=== PATIENT | female | born 1985 | race Caucasian/White ===

== ENCOUNTER 2023-07-19 17:04 | Outpatient (CLI) | payer OTHER, SELFPAY ==
[2023-07-19 20:01] VITALS: BMI 30.4
== END 2023-07-19 17:53 | disposition home or self-care (01) ==
LOC: UTC.OUT 17:12
PROVIDERS: PCP Family Medicine; Visit Provider Nurse Practitioner Family
DX: Z11.1 Encounter for screening for respiratory tuberculosis (principal)
CPT/HCPCS: 86580

== ENCOUNTER 2025-05-07 07:56 | Emergency (ER) | payer OTHER, SELFPAY ==
[2025-05-07] VITALS (8 sets, daily range): BP systolic 174–200; BP diastolic 75–134; PULSE 55–85; RESP 15–16; TEMP 36.6–36.7; O2SAT 95–99; BMI 34.2
--- NOTE | 2025-05-07 08:16 | CT_ITS ---
FINAL REPORT TECHNIQUE: The patient was injected with IV contrast. Axial images were obtained through the chest in a PE protocol. 3-D reconstruction images were also performed. Individualized dose reduction techniques using automated exposure control or adjustment of the MA and/or KV according to patient's size were employed. CLINICAL HISTORY: pain between scapula; left arm paresthesias COMPARISON: None FINDINGS: Mediastinal vasculature is adequately opacified. No pulmonary artery filling defects are identified to suggest PE. There is no aortic dissection or aneurysm. There is no axillary adenopathy. There is no hilar or mediastinal adenopathy. The heart size is normal. There is no pericardial or pleural effusion. Limited images of the upper abdomen demonstrate small bilateral nonobstructing kidney stones measuring up to 3 mm. No suspicious infiltrate or nodule is identified. IMPRESSION: No evidence of dissection or aneurysm. Reviewed, Interpreted and Dictated by Joshua Cooper MD Transcribed by Joanna Coulter Authenticated and [facility]
--- NOTE | 2025-05-07 08:16 | CT_ITS ---
FINAL REPORT TECHNIQUE: Axial images were obtained of the thoracic spine by computed tomography. Coronal and sagittal reconstruction process performed. This study was performed with techniques to keep radiation doses as low as reasonably achievable (ALARA). Individualized dose reduction techniques using automated exposure control or adjustment of mA and/or kV according to the patient's size were employed. CLINICAL HISTORY: pain between scapula; left arm paresthesias COMPARISON: None FINDINGS: Thoracic vertebrae show normal height. Disc spaces are well-preserved. There is no malalignment. The facets are properly aligned. There is mild anterior osteophyte formation in the mid and lower thoracic spine. There are small bilateral nonobstructing kidney stones measuring up to 3 mm. No hydronephrosis. IMPRESSION: Degenerative/chronic change without acute bony abnormality. Small nonobstructing bilateral kidney stones. Reviewed, Interpreted and Dictated by Joshua Cooper MD Transcribed by Joanna Coulter Authenticated and [facility]
--- NOTE | 2025-05-07 08:18 | ED_ITS ---
Discharge Plan Disposition Patient Disposition: Home, Self-Care Prescriptions Prescriptions: New lidocaine 4 % adhesive patch,medicated 1 patch topical DAILY Qty: 5 0RF Rx Instructions: may leave on for up to 12 hrs ibuprofen 800 mg tablet 800 mg PO TID PRN (Reason: pain) 7 Days Qty: 20 0RF cyclobenzaprine 5 mg tablet 5 mg PO TID PRN (Reason: muscle spasm) 5 Days Qty: 15 0RF No Action lisinopril 40 mg tablet PO Patient Comments: TAKE ONE TABLET BY MOUTH EVERY DAY Referrals Follow up/Referrals: Evans Wing MD [Primary Care Provider, Medical] - See instructions Sai Degroot MD [Staff Physician, Cardiology] - See instructions Activity Restrictions/Add. Instructions Additional Instructions/Restrictions: No evidence of an acute cardiovascular or neurovascular emergency. If you continue to have some paresthesias in the left upper extremity I would recommend that you follow-up with Dr. Wing for consideration of an outpatient MRI return to the emergency point with any significant weakness developing in your arm. This is most likely an acute thoracic myofascial strain supportive medications have been prescribed. Lastly I would recommend that you follow-up with our cow rider for further evaluation and workup for your refractory hypertension that is chronic. Clinical Impressions Clinical Impression: Back pain, Arm paresthesia, left, Hypertension, Acute thoracic myofascial strain Print Language Print Language: [place] Discharge ED Provider: Claudia Perez General Adult HPI General Chief complaint: PAIN Stated complaint: Pain in back, Spinal area, and L arm Time Seen by Provider: 05/07/25 08:08 Mode of Arrival: Ambulatory Source of Information: Patient Description of Symptoms (Recalled from ER Triage Doc. by RN): patient states this am she turned her head to left and felt a pop in between her shoudler blades with numbness in her left middle ring and pinky finger. she reports 6/10 pain History of Present Illness HPI narrative: Patient is a 40-year-old female presented with back pain and left arm paresthesias. States she was driving at work turning to the left and felt a pop between her shoulder blades and subsequently developed [id number] sensation in her left upper extremity all the way down to her fingers. States the pain is severe worsening with movement and touch feels like that she is having significant muscular spasm in her back she states. No chest pain. Does have refractory very poorly controlled hypertension and is on multiple medications for this. Has never been worked up by a specialist. States that she takes lisinopril amlodipine metoprolol. Related Data Home Medications ?Medication ?Instructions ?Recorded ?Confirmed lisinopril 40 mg tablet mg PO 10/29/24 10/29/24 Previous Rx's ?Medication ?Instructions ?Recorded cyclobenzaprine 5 mg tablet 5 mg PO TID PRN muscle spa sm 5 05/07/25 days #15 tabs ibuprofen 800 mg tablet 800 mg PO TID PRN pain 7 day s #20 05/07/25 tabs lidocaine 4 % topical patch 1 patch topical DAILY #5 e a 05/07/25 Allergies Allergy/AdvReac Type Severity Reaction Status Date / Time capsaicin Allergy Verified 10/29/24 09:58 [facility] Disclaimer: The information contained in this section may have been updated after the patient was seen, as this information can be updated by other users. Medical History (Updated 05/07/25 @ 10:33 by Claudia Perez MD) Hx of Crohn's disease History of high blood pressure History of pre-eclampsia Surgical History (Updated 10/29/24 @ 10:00 by Carolyn Stephens MA) Hx of resection of small bowel Social History (Updated 10/29/24 @ 10:28 by Carolyn Stephens MA) Smoking Status: Current every day smoker alcohol intake: current alcohol intake frequency: holidays/special occasions only current occupational status: employed Travel in the last 8 weeks?: None Have you lived/traveled outside US in past 30 days?: No Contact w/someone who lives/traveled outside US past 30 days?: No Exposure to someone with infectious disease in past 14 days?: No Do you have a fever (greater than 100.4 F or 38 C)?: No Have you tested positive for COVID-19?: No Exposed to someone with COVID-19 in past 14 days?: No Do you have a sore throat?: No Do you have a cough?: No Do you have any weakness?: No Do you have any diarrhea?: No Are you experiencing any unusual bleeding?: No Do you have any muscle aches/pain?: Yes Do you have any abdominal pain?: No Are you experiencing loss of taste or smell?: No Other Medical History Have you received the Flu Vaccine for this season: No Have you received the Pneumonia Vaccine: No ROS Obtained: Yes All systems reviewed & no additional complaints except as documented Physical Exam General General appearance: alert and in no apparent distress Respiratory Respiratory exam: Present normal lung sounds bilaterally Cardiovascular Cardiovascular exam: Present regular rate, normal rhythm and other (Severely hypertensive; normal 2+ bilateral radial pulses) Back Exam Back exam: Present tenderness (Tenderness in the upper and midline thoracic spine no cervical spine tenderness no step-offs or deformities or soft tissue swelling) Neurological Exam Neurological exam: Present alert, oriented X3, CN II-XII intact, normal gait and other (Specifically left upper extremity there is normal median ulnar radial axillary nerve motor and sensory function); Absent motor sensory deficit Medical Decision Making Medical Records Screening: Per USPSTF and CDC recommendations, given the prevalence of disease in our region, it is our hospital?s policy to screen for HIV and viral Hepatitis for all patients aged 18 and over and those with ongoing risk factors. Black Inquiry Pt receiving controlled substance: No Vital Signs: 05/07/25 08:07 05/07/25 08:08 05/07/25 08:09 Temperature 97.8 F Temperature Source Oral Pulse Rate 72 77 Pulse Rate [Right Radial] 73 Respiratory Rate 15 Blood Pressure 200/134 H 193/123 H Blood Pressure [Right Arm] 193/123 H Blood Pressure Mean [Right Arm] 146 Blood Pressure Source [Right Arm] Automatic Cuff Blood Pressure Position [Right Arm] Sitting 02 Sat by Pulse Oximetry 98 98 97 Oxygen Delivery Method Room Air 05/07/25 08:30 05/07/25 09:00 05/07/25 09:30 Temperature Temperature Source Pulse Rate 69 64 55 L Pulse Rate [Right Radial] Respiratory Rate Blood Pressure 174/111 H 175/108 H 183/110 H Blood Pressure [Right Arm] Blood Pressure Mean [Right Arm] Blood Pressure Source [Right Arm] Blood Pressure Position [Right Arm] 02 Sat by Pulse Oximetry 98 95 99 Oxygen Delivery Method 05/07/25 10:00 Temperature Temperature Source Pulse Rate 64 Pulse Rate [Right Radial] Respiratory Rate Blood Pressure 182/125 H Blood Pressure [Right Arm] Blood Pressure Mean [Right Arm] Blood Pressure Source [Right Arm] Blood Pressure Position [Right Arm] 02 Sat by Pulse Oximetry 97 Oxygen Delivery Method Lab Data Lab results reviewed: Yes I reviewed the patient's lab results. Lab Results 05/07/25 08:46: WBC 9.7, RBC 4.77, Hgb 14.0, Hct 41.9, MCV 87.8, MCH 29.4, MCHC 33.4, RDW 12.3, Plt Count 294, MPV 10.8 H, Neut % (Auto) 61.8, Lymph % (Auto) 30.2, [place] % (Auto) 4.7, Eos % (Auto) 2.7, Baso % (Auto) 0.5, Neut # (Auto) 6.0, Lymph # (Auto) 2.9, [place] # (Auto) 0.5, Eos # (Auto) 0.3, Baso # (Auto) 0.1, PT 9.7 L, INR 0.86 L, APTT 28.1, Sodium 140, Potassium 4.3, Chloride 107, Carbon Dioxide 28, Anion Gap 9.3, BUN 13, Creatinine 0.80, Estimated Creat Clear 150, Estimated GFR 80, Est GFR ( Amer) 97, Glucose 103 H, Calcium 9.5, Total Bilirubin 0.4, AST 29, ALT 22, Alkaline Phosphatase 61, Troponin I < 0.01, Total Protein 7.5, Albumin 4.6, Globulin 2.9, Albumin/Globulin Ratio 1.6, HCV Ab RYLAN w/Rflx PCR Qn Negative, HIV Ag/Ab Combo Qual Negative 05/07/25 08:46 05/07/25 08:46 Orders (Tests/Meds): ED MEDICATIONS Discontinued Medications Generic Name Dose Route Start Last Admin Trade Name Freq PRN Reason Stop Dose Admin Acetaminophen 1,000 mg 05/07/25 08:16 05/07/25 08:42 Acetaminophen 1,000mg/100ml Vial IV 05/07/25 08:17 1,000 mg ONCE ONE Administration Diazepam 2 mg 05/07/25 08:16 05/07/25 08:43 Diazepam 10mg/2ml Syringe IV 05/07/25 08:17 2 mg ONCE ONE Administration Lactated Ringer's 1,000 mls @ 999 mls/hr 05/07/25 08:30 05/07/25 10:30 Lactated Ringer's 1000 Ml Bag IV 05/07/25 09:30 Infused .Q1H1M MAISHA Infusion Iopamidol 80 ml 05/07/25 09:26 05/07/25 09:27 Iopamidol-370 (76%);100ml Bottle IV 05/07/25 09:27 80 ml ONCE ONE Administration Sodium Chloride 10 ml 05/07/25 09:26 05/07/25 09:27 Sodium Chloride 0.9% 10ml Syr (Rad Only) IV 05/07/25 09:27 10 ml ONCE ONE Administration Sodium Chloride 50 ml 05/07/25 09:26 05/07/25 09:26 0.9 % Sodium Chloride 50 Ml Vial IV 05/07/25 09:27 50 ml ONCE ONE Administration ORDERS Category Date Time Status CT angio chest - dissection Stat Cat Scan 05/07/25 08:[address] thoracic spine wo con Stat Cat Scan 05/07/25 08:16 Taken CBC w/Auto Diff [Complete Blood Count Auto Diff] Stat Lab 05/07/25 08:46 Completed CMP [Comprehensive Metabolic Panel] Stat Lab 05/07/25 08:46 Completed HIV Combo Stat Lab 05/07/25 08:46 Completed Hepatitis C Ab Qual. W/ RFX Stat Lab 05/07/25 08:46 Completed PT/PTT Stat Lab 05/07/25 08:46 Completed Trop I [Troponin I] Stat Lab 05/07/25 08:46 Completed Troponin I Q3H Lab 05/07/25 11:30 Ordered Troponin I Q3H Lab 05/07/25 14:30 Ordered Medical Decision Narrative: 40-year-old presenting today with significant pain between her shoulder blades in the midline of her thoracic spine in the upper region as well as left arm paresthesias. Anatomically she would have to have cervical involvement to have cervical radiculopathy into the left upper extremity so the location of her back pain is not consistent with that. She has normal pulses however an aortic dissection remains in the differential and we will get a CT of her chest to rule this out. She has normal pulses other this is low likelihood. She does have severe and refractory hypertension on multiple medications for this I advised that she follow-up with a specialist after today's visit if everything turns out to be okay from emergency standpoint. She is significantly tender even to light touch in her back which suggest this is superficial and musculoskeletal in nature but that will be a diagnosis of exclusion. Tylenol Valium IV fluids have been administered and will reassess. At the moment I do not suspect that she has any significant herniated disc or central nervous system compression that would require emergency MRI or decompression/surgery. Her neurologic exam is normal aside from subjective paresthesias in that left arm. Reassessment 10:[address] scan performed I personally interpreted shows no evidence of a dissection radiology read consistent with this as well. She does have some chronic degenerative changes but nothing acute. Labs otherwise unremarkable on serial assessments she has normal neurologic function still complains of some paresthesias. She may follow-up outpatient discussed the possibility of getting an MRI but no indication emergently for this. Lastly she has chronic and refractory hypertension she is been referred to her cow rider patient was discharged in stable and improved condition. Working diagnosis is an acute myofascial thoracic strain. Critical Care Critical Care Time Critical Care Time: No
--- NOTE | 2025-05-07 08:28 | ECG_ITS ---
APPROVED REPORT Exam: Resting ECG HR:69 bpm ECG Measurements Heart Rate 69 AXES AR 170 P 49 QRSd 88 QRS 72 QT 388 T 52 QTc 407 Conclusion SINUS RHYTHM NONSPECIFIC T-WAVE ABNORMALITY BORDERLINE ECG UNCONFIRMED REPORT Electronically signed by : Vicente Perez, 05/09/2025 15:31:17
[2025-05-07] MEDS: ACETAMINOPHEN 1,000MG/100ML VIAL 1000 MG IV (08:42)
[2025-05-07] MEDS: LACTATED RINGERS 1000ML 1,000 ML 999 ML IV (08:42)
[2025-05-07] MEDS: diazePAM 10MG/2ML SYRINGE 2 MG IV (08:43)
[2025-05-07 08:55] LABS: Hematocrit 41.9 % (37.0-47.0); Hemoglobin 14.0 g/dL (12.2-16.2); Immature Granulocytes % 0.1 %; Mean Corpuscular HGB Conc 33.4 g/dL (31.8-35.4); Mean Corpuscular Hemoglobin 29.4 pg (27.0-31.2); Mean Corpuscular Volume 87.8 fl (81-99); Nucleated Red Blood Cells % 0 %; Platelet Count 294 K/mm3 (142-424); Red Blood Count 4.77 M/mm3 (4.20-5.40); Red Cell Distribution Width-SD 39.8 fL; White Blood Count 9.7 K/mm3 (4.8-10.8)
[2025-05-07 09:03] LABS: Albumin Level 4.6 g/dl (3.5-5.0); Chloride 107 mmol/L (98-107); Potassium 4.3 mmoL/L (3.5-5.1); Sodium 140 mmol/L (136-145)
[2025-05-07 09:06] LABS: Alanine Aminotransferase 22 U/L (12-78); Albumin/Globulin Ratio 1.6 (1.1-1.8); Alkaline Phosphatase 61 U/L (38-126); Anion Gap 9.3 mEq/L (5-15); Aspartate Amino Transferase 29 U/L (14-36); Bilirubin,Total 0.4 mg/dl (0.2-1.3); Blood Urea Nitrogen 13 mg/dl (7-17); Calcium 9.5 mg/dl (8.4-10.2); Carbon Dioxide 28 mmol/L (22.0-30.0); Creatinine Clearance Estimated 150 mL/min (50-200); Creatinine,Serum 0.80 mg/dl (0.52-1.04); Estimated Glomerular Filt Rate 80 ml/min (>60); GFR (African American) 97 ML/MIN (>60); Globulin 2.9 g/dL (1.3-3.2); Glucose 103 mg/dl (74-100); Total Protein,Serum 7.5 g/dl (6.3-8.2)
[2025-05-07 09:07] LABS: Activated Partial Thrombo Time 28.1 seconds (22.8-30.6); INR 0.86 (0.9-1.1); Prothrombin Time 9.7 seconds (10.1-12.5)
[2025-05-07 09:22] LABS: Troponin I < 0.01 ng/ml (0.00-0.034)
[2025-05-07] MEDS: 0.9 % SODIUM CHLORIDE 50 ML VIAL IV (09:26)
[2025-05-07] MEDS: IOPAMIDOL-370 (76%);100ML BOTTLE 80 ML IV (09:27)
[2025-05-07] MEDS: SODIUM CHLORIDE 0.9% 10ML SYR (RAD ONLY) 10 ML IV (09:27)
[2025-05-07 09:58] LABS: Hepatitis C Ab Qual. W/ RFX NEGATIVE (Negative)
== END 2025-05-07 10:44 | disposition home or self-care (01) ==
PROVIDERS: Emergency Provider Student in an Organized Health Care Education/Training Program; PCP Family Medicine
DX: S29.019A Strain of muscle and tendon of unspecified wall of thorax, initial encounter (principal); M54.9 Dorsalgia, unspecified; I10 Essential (primary) hypertension; R20.2 Paresthesia of skin
CPT/HCPCS: 71275; 72128; 80053; 84484; 85025; 85610; 85730; 86803; 87389; 93005; 96361; 96374; 96375; 99285; J0131; J3360; J7120; Q9967

== ENCOUNTER 2025-06-03 11:35 | Emergency (ER) | payer OTHER, SELFPAY ==
--- OUTSIDE RECORDS SUMMARY | 2024-06-25 05:15 | XMS_ITS ---
Author Organization Aj Address [address] [place] [address] [place] [id number] Care Team Providers Care Fish Filleter Name Role Phone Evans Wing Unavailable [phone] Allergies No Known Allergies REASON FOR VISIT f/u fasting Medications Medication SIG (Take, Route, Fr equency, Duration) Notes Start Date End Date Status Lisinopril 40 MG 1 tablet Orally Once a day; Duration: 90 days 06/25/2024 Active Vital Signs Blood pressure systolic 170 mm Hg 06/25/20 24 Blood pressure diastolic 114 mm Hg 024 Heart Rate 57 /min 06/25/2024 Height 68 in 06/25/2024 Weight 214 lbs 06/25/2024 BMI 32.54 kg/m2 06/25/2024 Encounters Encounter Location Date Provider Diagnosis Aj [address] [place] [address] [place] [id number] 06/25/2024 Evans Wing Primary hypertension I10 and Mixed hyperlipidemia E78.2 Assessments Encounter Date Diagnosis (ICD Code) Assessment Notes Treatment Notes Treatment Clinical Notes Section Notes 06/25/2024 Primary hypertension (ICD-10 - I10) Not at goal 06/25/2024 Mixed hyperlipidemia (ICD-10 - E78.2) Plan Of Treatment Medication Medication Name Sig Start Date Stop Date Notes Lisinopril 20 MG 1 tablet Orally Once a day 12/28/2023 Lisinopril 40 MG 1 tablet Orally Once a day; Duration: 90 days 06/25/2024 Treatment Notes Assessment Notes Primary hypertension Not at goal Pending Test Test Name Order Date H-Lipid Panel 06/25/2024 H-CMP 06/25/2024 Next Appt Details Follow Up: 4 Weeks, Reason: Progress Notes * YESENIA ROTHOB: 7 (40 yo F)Acc No.[id number]:06/25/2024 Progress Notes Patient: ZAKIYA MALCOLM Provider: Gisselle Wing M.D. :1985 A ge:39 Y S ex:Female Date:06/25/2024 Address:[address] [place] [address] [place], [place] [address] Subjective: * Chief Complaints: * 1 . F/u fasting. * HPI: C ardiology: 39 year old female presents with c/o Blood Pressure Elevated?Pt here to f/u on hypertension. Pt's bp elevated in office today, pt states that she did not take Lisinopril yesterday and just took it about 30 minutes ago. c/o Hyperlipidemia P t here to f/u, states she is fasting today. * ROS: D ERMATOLOGY: no R mara. n o H dae. G ASTROENTEROLOGY: no N ausea. n o V omiting. U ROLOGY: no D ifficulty urinating. n o B lood in urine. * Medical History: H ypertension, Kidney Stones. * Surgical History: W isdom Teeth Extractions , Upper Teeth Extracted . * Hospitalization/Major Diagno stic Procedure: D enies Past Hospitalization. * Family History: F ather: alive. M other: alive. 1 sister(s) . 1 son(s) . . * Social History: C URRENT TOBACCO USE: No . M arital Status: Single. * Medications: T aking Lisinopril 20 MG Tablet 1 tablet Orally Once a day , Medication List reviewed and reconciled with the patient * Allergies: N .K.D.A. Objective: * Vitals: W t:214, Temp:98.1, BP:170/114, HR:57, Nurse:idalia, Ht: 68, Repeat BP:164/98, BMI:32.54. * Examination: C ardiology: General Appearance: p leasant, NAD. H eart sounds: R RR, normal S1, S2. L ungs: c lear, no rales or wheezes. E xtremities: n o leg edema. Assessment: * Assessment: 1. P rimary hypertension - I10 (Primary) 2 . M ixed hyperlipidemia - E78.2? Plan: * Treatment: 2. M ixed hyperlipidemia L AB: H-Lipid Panel L AB: H-CMP * Follow Up: 4 Weeks * Images: Billing Information: * Visit Code: 52356 Office Visit, Est Pt., Level 4. * Procedure Codes: * Electronic signature of Nga Wing MD on 06/03/2025 at 12:04 PM EDT Sign off status: Pending * Provider: Gisselle Wing M.D. Date: Generated for Dario donovan/Gerardo/Lexysmitting on: 0 06/03/2025 12:04 PM EDT History and Physical Notes * HPI (History of Present Illness) Category Sub-Category Detail Notes Category Not es Cardiology Blood Pressure Elevated Pt here to f/u on hypertension. Pt's bp elevated in office today, pt states that she did not take Lisinopril yesterday and just took it about 30 minutes ago Hyperlipidemia Pt here to f/u, stat es she is fasting today Examination Category Sub-Category Detail Notes Category Not es Cardiology Lungs: clear, no rales or wheezes Heart sounds: RRR, normal S1, S2 Extremities: no leg edema General Appearance: pleasant, NAD
--- OUTSIDE RECORDS SUMMARY | 2024-07-23 05:00 | XMS_ITS ---
Author Organization Aj Address [address] [place] [address] [place] [id number] Care Team Providers Care Office Executive Name Role Phone Mecca Evans Unavailable [phone] Allergies No Known Allergies REASON FOR VISIT 1 Month Follow Up Encounters Encounter Location Date Provider Diagnosis [place] [address] [place] [address] [place] [phone] 07/23/2024 Evans Wing Plan Of Treatment No Information Progress Notes * YESENIA ROTHOB: 7 (40 yo F)Acc No.[id number]:07/23/2024 Progress Notes Patient: ZAKIYA MALCOLM Provider: Gisselle Wing M.D. :1985 A ge:39 Y S ex:Female Date:07/23/2024 Address:[address] [place] [address] Subjective: * Chief Complaints: * 1 . 1 Month Follow Up. * ROS: D ERMATOLOGY: no R mara. [...] No . M arital Status: Single. * Allergies: N .K.D.A. Objective: * Vitals: Assessment: Plan: * Treatment: * Images: Billing Information: * Visit Code: * Procedure Codes: * Electronic signature of Nga Wing MD on 06/03/2025 at 12:05 PM EDT Sign off status: Pending * Provider: Gisselle Wing M.D. Date: 09/22/2023 Generated for Dario donovan/Gerardo/Paty on: 0 06/03/2025 12:05 PM EDT
--- OUTSIDE RECORDS SUMMARY | 2025-03-25 13:00 | XMS_ITS ---
Author Organization Aj Address [address] [place] [id number] Care Team Providers Care Supervisor Finish End Name Role Phone Evans Wing Unavailable [phone] Allergies No Known Allergies REASON FOR VISIT BP Elevated Medications Medication SIG (Take, Route, Frequency, Duration) Notes Start Date End Date Status Lisinopril 40 MG 1 tablet Orally Once a day 06/25/2024 Active amLODIPine Besylate 10 MG 1 tablet Orall y Once a day; Duration: 30 days 03/25/2025 Active Metoprolol Succinate ER 50 MG 1 tablet O rally Once a day; Duration: 30 days 03/25/2025 Active hydroCHLOROthiazide 12.5 MG 1 capsule in the morning Orally Once a day; Duration: 30 days 03/25/2025 Active Vital Signs Blood pressure systolic 218 mm Hg 03/25/20 25 Blood pressure diastolic 122 mm Hg 025 Heart Rate 81 /min 03/25/2025 Height 68 in 03/25/2025 Weight 219.6 lbs 03/25/2025 BMI 33.39 kg/m2 03/25/2025 Encounters Encounter Location Date Provider Diagnosis Aj [address] [place] [phone] 03/25/2025 Evanssarah Wing Primary hypertension I10 Assessments Encounter Date Diagnosis (ICD Code) Assessment Notes Treatment Notes Treatment Clinical Notes Section Notes 03/25/2025 Primary hypertension (ICD-10 - I10) Plan Of Treatment Medication Medication Name Sig Start Date Stop Date Notes Lisinopril 40 MG 1 tablet Orally Once a day 06/25/2024 amLODIPine Besylate 10 MG 1 tablet Orall y Once a day; Duration: 30 days 03/25/2025 Metoprolol Succinate ER 50 MG 1 tablet O rally Once a day; Duration: 30 days 03/25/2025 hydroCHLOROthiazide 12.5 MG 1 capsule in the morning Orally Once a day; Duration: 30 days 03/25/2025 Next Appt Details Follow Up: 1 day, Reason: Progress Notes * YESENIA ROTHOB: 7 (40 yo F)Acc No.[id number]:03/25/2025 Progress Notes Patient: ZAKIYA MALCOLM Provider: Gisselle Wing M.D. :1985 A ge:40 Y S ex:Female Date:03/25/2025 Address:[address] [place] [address] [place] [address] [place], [place] [address] Subjective: * Chief Complaints: * 1 . BP Elevated. * HPI: C ardiology: 40 year old female presents with c/o Blood Pressure Elevated?Pt states she was at work and started with blurry vision i n lt eye. Pt check bp and it was 227/146 and 210/119. 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 Pt states she does have dull headache in the back of her head as well. Pt states she took Lisinopril 40mg around 6:00 this morning and took another 10mg around 2:00 this afternoon. * ROS: D ERMATOLOGY: no R mara. [...] Status: Single. * Medications: T aking Lisinopril 40 MG Tablet 1 tablet Orally Once a day , Medication List reviewed and reconciled with the patient * Allergies: N .K.D.A. Objective: * Vitals: W t: 219.6, Temp: 98.0, BP: 218/122, HR: 81, Nurse: idalia, Ht: 68, BMI:33.39. * Examination: C ardiology: General Appearance: p leasant, NAD. H eart sounds: R RR, normal S1, S2. L ungs: c lear, no rales or wheezes. E xtremities: n o leg edema. Assessment: * Assessment: 1. P rimary hypertension - I10 (Primary) Plan: * Treatment: * Procedure Codes: 1 036F TOBACCO NON-USER * Follow Up: 1 day * Images: Billing Information: * Visit Code: 63519 Office Visit, Est Pt., Level 3. * Procedure Codes: 1036F TOBACCO NON-USER. * Electronic signature of Nga Wing MD on 06/03/2025 at 12:05 PM EDT Sign off status: Pending * Provider: Gisselle Wing M.D. Date: 0 03/25/2025 Generated for Dario donovan/Gerardo/Paty on: 0 06/03/2025 12:05 PM EDT History and Physical Notes * HPI (History of Present Illness) Category Sub-Category Detail Notes Category Not es Cardiology Blood Pressure Elevated Pt state s she was at work and started with blurry vision in lt eye. Pt check bp and it was 227/146 and 210/119. 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 Pt states she does have dull headache in the back of her head as well. Pt states she took Lisinopril 40mg around 6:00 this morning and took another 10mg around 2:00 this afternoon Examination Category Sub-Category Detail Notes Category Not es Cardiology Lungs: clear, no rales or wheezes Heart sounds: RRR, normal S1, S2 Extremities: no leg edema General Appearance: pleasant, NAD
--- OUTSIDE RECORDS SUMMARY | 2025-03-26 06:45 | XMS_ITS ---
Author Organization Aj Address [address] [place] [phone] Care Team Providers Care Crossing Watchman Name Role Phone Evans Wing Unavailable [phone] Allergies No Known Allergies REASON FOR VISIT follow up Medications Medication SIG (Take, Route, Frequency, Duration) Notes Start Date End Date Status amLODIPine Besylate 10 MG 1 tablet Orall y Once a day 03/25/2025 Active hydroCHLOROthiazide 12.5 MG 1 capsule in the morning Orally Once a day 03/25/2025 Active Metoprolol Succinate ER 50 MG 1 tablet O rally Once a day 03/25/2025 Active Lisinopril 40 MG 1 tablet Orally Once a day 06/25/2024 Active Vital Signs Blood pressure systolic 140 mm Hg 03/26/20 25 Blood pressure diastolic 92 mm Hg 025 Heart Rate 69 /min 03/26/2025 Height 68 in 03/26/2025 Weight 219 lbs 03/26/2025 BMI 33.3 kg/m2 03/26/2025 Encounters Encounter Location Date Provider Diagnosis Aj [facility] [address] [place] [phone] 03/26/2025 Evans Wing Primary hypertension I10 Assessments Encounter Date Diagnosis (ICD Code) Assessment Notes Treatment Notes Treatment Clinical Notes Section Notes 03/26/2025 Primary hypertension (ICD-10 - I10) Plan Of Treatment Medication Medication Name Sig Start Date Stop Date Notes amLODIPine Besylate 10 MG 1 tablet Orally Once a day 03/25 hydroCHLOROthiazide 12.5 MG 1 capsule in the morning Orally Once a day 03/25/2025 Metoprolol Succinate ER 50 MG 1 tablet Orally Once a day 0 03/25/2025 Lisinopril 40 MG 1 tablet Orally Once a day 06/25/2024 Next Appt Details Follow Up: 3 Weeks, Reason: Progress Notes * YESENIA ROTHOB: 7 (40 yo F)Acc No.[id number]:03/26/2025 Progress Notes Patient: ZAKIYA MALCOLM Provider: Gisselle Wing M.D. :1985 A ge:40 Y S ex:Female Date:03/26/2025 Address:[address] [place] [address] [place], [place] [address] Subjective: * Chief Complaints: * 1 . Follow up. * HPI: C ardiology: 40 year old female presents with c/o Blood Pressure Elevated?Pt here to f/u. Pt started on Amlodipine 10mg, Metoprolol Succ. 50mg and HCTZ 12.5mg on 03/25 due to high bp. Pt states she no longer has blurry vision and she does feel better. * ROS: D ERMATOLOGY: no R mara. [...] arital Status: Single. * Medications: T aking amLODIPine Besylate 10 MG Tablet 1 tablet Orally Once a day , Taking hydroCHLOROthiazide 12.5 MG Capsule 1 capsule in the morning Orally Once a day , Taking Metoprolol Succinate ER 50 MG Tablet Extended Release 24 Hour 1 tablet Orally Once a day , Taking Lisinopril 40 MG Tablet 1 tablet Orally Once a day , Medication List reviewed and reconciled with the patient * Allergies: N .K.D.A. Objective: * Vitals: W t: 219, Temp: 97.8, BP: 140/92, HR: 69, Nurse: idalia, Ht: 68, BMI:33.3. * Examination: C ardiology: General Appearance: p leasant, NAD. H eart sounds: R RR, normal S1, S2. L ungs: c lear, no rales or wheezes. E xtremities: n o leg edema. Assessment: * Assessment: 1. P rimary hypertension - I10 (Primary) Plan: * Treatment: * Follow Up: 3 Weeks * Images: Billing Information: * Visit Code: 93797 Office Visit, Est Pt., Level 3. * Procedure Codes: * Electronic signature of Nga Wing MD on 06/03/2025 at 12:05 PM EDT Sign off status: Pending * Provider: Gisselle Wing M.D. Date: 0 03/26/2025 Generated for Dario donovan/Gerardo/Paty on: 0 06/03/2025 12:05 PM EDT History and Physical Notes * HPI (History of Present Illness) Category Sub-Category Detail Notes Category Not es Cardiology Blood Pressure Elevated Pt here to f/u. Pt started on Amlodipine 10mg, Metoprolol Succ. 50mg and HCTZ 12.5mg on 03/25 due to high bp. Pt states she no longer has blurry vision and she does feel better Examination Category Sub-Category Detail Notes Category Not es Cardiology Lungs: clear, no rales or wheezes Heart sounds: RRR, normal S1, S2 Extremities: no leg edema General Appearance: pleasant, NAD
--- OUTSIDE RECORDS SUMMARY | 2025-04-10 09:00 | XMS_ITS | Encounter Summary ---
Author Organization [place] [address] Care Team Providers Care Associate Professor Of Surgery Name Role Phone Rebeca Cox MD Primary Care Provider + Reason for Referral * Consultation (Routine) - Closed Specialty Diagnoses / Procedures Referred By Contchuyita t Referred To Contact Diagnoses Ganglion cyst of finger Procedures [place] OFFICE/OUTPATIENT NEW MODERATE MDM 45 MINUTES Rebeca Cox MD [address] [place] [address] Phone: tel: fax: Jeremias Daly MD [address] [place] [address] Phone: tel: fax: Referral ID Status Reason Start Date Expiration Date Visits Re quested Visits Authorized [id number] Closed 04/10/2025 04/10/2026 99 99 Reason for Visit * Reason Comments Annual Exam Establish Care Encounter Details Date Type Department Care Team (Late st Contact Info) Description 04/10/2025 9:00 AM EDT Office Visit [facility] [address] [place] [address] Rebeca Cox MD [address] [place] [address] Annual physical exam (Primary Dx); Essential hypertension; Screening for iron deficiency anemia; Screening for thyroid disorder; Screening for endocrine, nutritional, metabolic and immunity disorder; Screening for lipoid disorders; Screening for diabetes mellitus; IUD (intrauterine device) in place; Ganglion cyst of finger Social History Tobacco Use Types Packs/Day Years Used Date Smoking Tobacco: Former Cigarettes Passive Smoke Exposure: Never Smokeless Tobacco: Never Tobacco Cessation:Counseling Given: Not Answered Alcohol Use Standard Drinks/Week Comments Yes 0 (1 standard drink = 0.6 oz pur e alcohol) PHQ-2 Answer Date Recorded PHQ-2 Total Score 0 04/10/2025 Comments No Sex and Gender Information Value Date Recorded Sex Assigned at Not on file Legal Sex Female 4:11 PM EDT Gender Identity Not on file Sexual Orientation Not on file documented as of this encounter Last Filed Vital Signs Vital Sign Reading Time Taken Comments Blood Pressure 146/86 04/10/2025 9:52 AM EDT Pulse 77 04/10/2025 9:09 AM EDT Temperature 37.3 C (99.1 F) 04/10/2025 9:09 AM EDT Respiratory Rate - - Oxygen Saturation 97% 04/10/2025 9:09 AM EDT Inhaled Oxygen Concentration - - Weight 99.2 kg (218 lb 12.8 oz) 04/10/2025 9:09 AM EDT Height - - Body Mass Index 34.27 01/31/2025 4:27 PM EDT documented in this encounter Functional Status * Cognitive and Functional Status Question Answer Date of Assessment Author Is the person deaf or does h e/she have serious difficulty hearing? No 04/10/2025 9:06 AM EDT Domonique Gonzalez MA Is the person blind or does he/she have serious difficulty seeing even when wearing glasses? No 04/10/2025 9:06 AM EDT Domonique Elias MA Does this person have seriou s difficulty walking or climbing stairs? No 04/10/2025 9:06 AM EDT Domonique Elias MA Does this person have diffic ulty dressing or bathing? No 04/10/2025 9:06 AM EDT Domonique Elias MA * Is the person deaf or does he/she have serious difficulty hearing? Answer Date of Assessment Author No 04/10/2025 9:06 AM EDT Domonique Elias MA * Is the person blind or does he/she have serious difficulty seeing even when wearing glasses? Answer Date of Assessment Author No 04/10/2025 9:06 AM EDT Domonique Elias MA * Does this person have serious difficulty walking or climbing stairs? Answer Date of Assessment Author No 04/10/2025 9:06 AM Domonique Garcia MA * Does this person have difficulty dressing or bathing? Answer Date of Assessment Author No 04/10/2025 9:06 AM Domonique Garcia MA * Because of a physical, mental or emotional condition, does this person have difficulty doing errands alone such as visiting a doctor's office or shopping? Answer Date of Assessment Author No 04/10/2025 9:06 AM EDDomonique Andrea MA * PHQ-9 Total Score Answer Date of Assessment Author 0 04/10/2025 9:07 AM Domonique Garcia MA * Question Answer Date of Assessment Author Little interest or pleasure in doing things 0 04/10/2025 9:07 AM Domonique Garcia MA Feeling down, depressed, or hopeless 0 04/10/2025 9:07 AM Domonique Garcia MA PHQ-2 Total Score 0 04/10/2025 9:07 AM Domonique Garcia MA * PHQ-2 Total Score Answer Date of Assessment Author 0 04/10/2025 9:07 AM Domonique Garcia MA * Question Answer Date of Assessment Author Feeling Nervous, Anxious, or on Edge 0 04/10/2025 9:06 AM TONIT Domonique Elias MA Not Being Able to Stop or Co ntrol Worrying 0 04/10/2025 9:06 AM Domonique Garcia MA Worrying too Much About Diff erent Things 0 04/10/2025 9:06 AM TONIT Domonique Elias MA Trouble Relaxing 3 04/10/2025 9:06 AM EDT Domonique Menard MA Being so Restless That it is Hard to Sit Still 0 04/10/2025 9:06 AM Domonique Garcia MA Becoming Easily Annoyed or Irritable 0 04/10/2025 9:06 AM TONIT Domonique Elias MA Feeling Afraid as if Somethi ng Awful Might Happen 0 04/10/2025 9:06 AM EDT Domonique Elias MA GARRY-7 Total Score 3 04/10/2025 9:06 AM EDT Domonique Elias MA documented as of this encounter Mental Status * Cognitive and Functional Status Question Answer Entry Date Author Because of a physical, menta l or emotional condition, does this person have difficulty doing errands alone such as visiting a doctor's office or shopping? No 04/10/2025 9:06 AM EDT Domonique Elias MA Because of a physical, menta l or emotional condition, does this person have serious difficulty concentrating, remembering or making decisions? No 04/10/2025 9:06 AM EDT Domonique Elias MA * Because of a physical, mental or emotional condition, does this person have serious difficulty concentrating, remembering or making decisions? Answer Entry Date Author No 04/10/2025 9:06 AM EDT Domonique Elias MA documented in this encounter Progress Notes * Rebeca Cox MD - 04/10/2025 9:00 AM EDTAssociated Problem(s): Essential hypertension uncontrolled but just took meds 1hr ago cont current regimen without change cont checking BP at home RTC 1mo to f/u BP and log consider increasing HCTZ * Rebeca Cox MD - 04/10/2025 9:00 AM EDTAssociated Problem(s): IUD (intrauterine device) in place placed in December 2024 * Rebeca Cox MD - 04/10/2025 9:00 AM EDT Vitals: 04/10/25 0909 04/10/25 0952 BP: (!) 166/92 (!) 146/86 BP Location: Left arm Patient Position: Sitting Pulse: 77 Temp: 99.1 ??F (37.3 ??C) TempSrc: Forehead SpO2: 97% Weight: 218 lb 12.8 oz (99.2 kg) Body mass index is 34.27 kg/m??. SUBJECTIVE: Chief Complaint Patient presents with Annual Exam Establish Care HPI: Well Adult: Subjective Ms. Gonzalez is a 40 y.o. female here for an annual wellness visit. Diet: Varies, some days I don't feel like eating at all. Others I snack all day. I usually eat onemeal a day. 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 no Health Maintenance Due Topic Date Due DTaP/TDaP/Td (1 - Tdap) Never done Hepatitis B Vaccine (1 of 3 - 19+ 3-dose series) Never done Cervical Cancer Screening Never done COVID-19 Vaccine ( - season) Never done Health Maintenance Topic Date Due DTaP/TDaP/Td (1 - Tdap) Never done Hepatitis B Vaccine (1 of 3 - 19+ 3-dose series) Never done Cervical Cancer Screening Never done COVID-19 Vaccine ( - season) Never done Influenza Vaccine (1) 05/06/2025 Annual Wellness Exam 04/10/2026 Meningococcal B Vaccine Aged Out Pneumococcal Vaccine 0-49 Aged Out There is no immunization history on file for this patient. Patient Active Problem List Diagnosis Essential hypertension IUD (intrauterine device) in place History reviewed. No pertinent past medical history. History reviewed. No pertinent surgical history. Allergies Allergen Reactions Capsaicin Anaphylaxis Venom-Honey Bee Anaphylaxis Current Outpatient Medications on File Prior to Visit Medication Sig Dispense Refill amLODIPine (NORVASC) 10 mg Oral Tablet Take 10 mg by mouth daily. hydroCHLOROthiazide (MICROZIDE) 12.5 mg Oral Capsule Take 12.5 mg by mouth every morning. lisinopriL (PRINIVIL;ZESTRIL) 40 mg Oral Tablet Take by mouth daily. metoprolol succinate (TOPROL-XL) 50 mg Oral Tablet Sustained Release 24 hr Take 50 mg by mouth daily. No current facility-administered medications on file prior to visit. Social History Socioeconomic History Marital status: Single Spouse name: None Number of children: None Years of education: None Highest education level: None Tobacco Use Smoking status: Former Types: Cigarettes Passive exposure: Never Smokeless tobacco: Never Vaping Use Vaping status: Every Day Substance and Sexual Activity Alcohol use: Yes Drug use: Never Family History Problem Relation Age of Onset High Blood Pressure Father Brain Cancer Father Cancer Sister Thyroid Cancer Maternal Aunt Thyroid Cancer Maternal Grandmother Kidney Disease Maternal Grandmother Breast Cancer Paternal Grandmother Heart Failure Paternal Grandfather No results found. No results found for this visit on 04/10/25. Patient Care Team: Rebeca Cox MD as PCP - General (Family Medicine) No results found for: WBC , HGB , HCT , PLT , CHOL , CHOLESTEROL , TRIG , HDL , LDLDIRECT , LDLCALC , ALT , AST , NA , K , CL , CREATININE , BUN , CO2 , TSH , INR , GLUCOSE , GLU , HGBA1C , MICROALBUR , TSHREFLEX Additional issues addressed today: Would like her ring finger knuckle looked at on her left hand Has IUD, does not currently have periods. Review of Systems Constitutional: Negative for chills, fatigue and fever. Respiratory: Negative for cough and shortness of breath. Cardiovascular: Negative for chest pain and leg swelling. Gastrointestinal: Negative for abdominal pain, blood in stool, constipation, diarrhea, nausea and vomiting. Genitourinary: Negative for dysuria. Musculoskeletal: Positive for joint swelling (left ring finger). Skin: Negative for rash. Neurological: Negative for headaches. Psychiatric/Behavioral: Negative for sleep disturbance. OBJECTIVE: Physical Exam Vitals reviewed. Constitutional: General: She is not in acute distress. Appearance: Normal appearance. She is obese. She is not diaphoretic. HENT: Head: Normocephalic and atraumatic. Nose: Nose normal. Mouth/Throat: Mouth: Mucous membranes are moist. Pharynx: Oropharynx is clear. Eyes: Extraocular Movements: Extraocular movements intact. Conjunctiva/sclera: Conjunctivae normal. Cardiovascular: Rate and Rhythm: Normal rate and regular rhythm. Pulses: Normal pulses. Heart sounds: Normal heart sounds. Pulmonary: Effort: Pulmonary effort is normal. Breath sounds: Normal breath sounds. Abdominal: General: Abdomen is flat. Palpations: Abdomen is soft. Tenderness: There is no abdominal tenderness. Musculoskeletal: General: Swelling (left ring finger MCP joint: fluctuant, nontender, no warmth or erythema) present. No tenderness. Normal range of motion. Cervical back: Normal range of motion and neck supple. Right lower leg: No edema. Left lower leg: No edema. Skin: General: Skin is warm and dry. Capillary Refill: Capillary refill takes less than 2 seconds. Coloration: Skin is not jaundiced. Findings: No rash. Neurological: General: No focal deficit present. Mental Status: She is alert. Mental status is at baseline. Psychiatric: Mood and Affect: Mood normal. Behavior: Behavior normal. Assessment & Plan Annual physical exam Essential hypertension uncontrolled but just took meds 1hr ago cont current regimen without change cont checking BP at home RTC 1mo to f/u BP and log consider increasing HCTZ Screening for iron deficiency anemia Orders: CBC; Future Screening for thyroid disorder Orders: TSH REFLEX TO FT4; Future Screening for endocrine, nutritional, metabolic and immunity disorder Orders: COMPREHENSIVE METABOLIC PANEL; Future Screening for lipoid disorders Orders: LIPID SCREEN; Future Screening for diabetes mellitus Orders: HEMOGLOBIN A1C; Future IUD (intrauterine device) in place placed in December 2024 Ganglion cyst of finger referred to Dr. Hurley aspiration vs removal cannot wear wedding ring Orders: AMB REFERRAL TO ORTHOPEDIC SURGERY RTC 1mo to f/u BP and for pap smear also f/u fasting labs if able to get done documented in this encounter Miscellaneous Notes * Patient Instructions - Rebeca Cox MD - 04/10/2025 9:00 AM EDT Please go to any location below to get labs done prior to next appt. Please fast for 8 hours prior to labwork. You do not need appt for labwork. [facility] -[address] [place] [address] - Tuesday: 7:30 a.m. - 4:30 p.m. Tuesday: 7:30 a.m. - 4:30 p.m. Tue: 7:30 a.m. - 4:30 p.m. Th: 7:30 a.m. - 4:30 p.m. [place]: 7:30 a.m. - 12:30 p.m. *Closed for Lunch Tue-: 12:30 p.m. - 1:30 p.m. Closed Weekends and Holidays [facility] -[facility] -[address] [place], [place] [id number] - Mon: 7:00 a.m. - 6:00 p.m. Tue: 7:00 a.m. - 6:00 p.m. Wed: 7:00 a.m. - 6:00 p.m. [place]: 7:00 a.m. - 6:00 p.m. Fri: 7:00 a.m. - 6:00 p.m. Sat: 7:00 a.m. - 3:00 p.m. Closed Sundays and Holidays [facility] -Lab and imaging -[address] [place] [address] - Mon: 6:30 a.m. - 6:00 p.m. Tue: 6:30 a.m. - 6:00 p.m. Wed: 6:30 a.m. - 6:00 p.m. Drea: 6:30 a.m. - 6:00 p.m. Fri: 6:30 a.m. - 6:00 p.m. Sat: 7:00 a.m. - 12:00 p.m. Closed Sundays and Holidays [address] -Lab only (no imaging) -[address] [address] - Mon: 7:00 a.m. - 6:00 p.m. Tue: 7:00 a.m. - 6:00 p.m. Wed: 7:00 a.m. - 6:00 p.m. Drea: 7:00 a.m. - 6:00 p.m. Fri: 7:00 a.m. - 6:00 p.m. Sat: 9:00 a.m. - 5:30 p.m. Sun: 9:00 a.m. - 5:30 p.m. Closed 12:00 p.m. - 1:00 p.m. Sat & Sun documented in this encounter Plan of Treatment Scheduled Referrals Name Type Priority Associated Diagnoses Order Schedule AMB REFERRAL TO ORTHOPEDIC SURGERY Outpatient Referral Routine Ganglion cyst of finger Ordered: 04/10/2025 documented as of this encounter Goals Goal Patient Goal Type Associated Problems Recent Progress Patient-Stated? Author Blood Pressure < 140/90 Blood Pressure 142/92(2024 9:50 AM EDT) No Rebeca Cox MD Maintain a healthy diet, exercise regularly and maintain an ideal body weight General No Domonique Elias MA Stay Tobacco Free Lifestyle No Rebeca Cox MD documented as of this encounter Results * (ABNORMAL) CBC (05/09/2025 8:12 AM EDT) WBC 11.2(H) 3.7 - 10.3 x10(3)/mcL 05/09/2025 1:06 PM EDT [facility] RBC 4.48 3.90 - 5.20 x10(6)/mcL 05/09/2025 1:06 PM EDT [facility] Hgb 13.2 11.2 - 15.7 g/dL 05/09/2025 1:06 PM EDT [facility] Hct 41.4 34.0 - 45.0 % 05/09/2025 1:06 PM EDT [facility] MCV 92.4 80.0 - 100.0 fL 05/09/2025 1:06 PM EDT [facility] MCH 29.5 26.0 - 34.0 pg 05/09/2025 1:06 PM EDT [facility] MCHC 31.9 30.7 - 35.5 g/dL 05/09/2025 1:06 PM EDT [facility] RDW 12.8 <=14.9 % 05/09/2025 1:06 PM EDT [facility] [place] Platelet 277 155 - 369 x10(3)/mcL 05/09/2025 1:06 PM EDT [facility], [facility] MPV 11.6 8.8 - 12.5 fL 05/09/2025 1:06 PM EDT [facility], [place] Blood VENOUS BLOOD / Unknown Venipuncture / Unknown 05/09/2025 8:12 AM EDT 05/09/2025 8:12 AM EDT Rebeca Cox MD HEMATOLOGY ORDERABLES Fi nal Result Performing Organization Address [facility]/ZIP Co de Phone Number [facility] [employer], [address] , [place] [address] * HEMOGLOBIN A1C (05/09/2025 8:12 AM EDT) [facility] Hgb A1C 5.5 4.2 - 5.6 % 05/09/2025 4:15 PM EDT [facility], [facility] Est. Avg Glucose 111 mg/dL 05/09/2025 4:15 PM EDT [facility], [facility] Blood VENOUS BLOOD / Unknown Venipuncture / Unknown 05/09/2025 8:12 AM EDT 05/09/2025 8:12 AM EDT Narrative [facility] - 05/09/2025 4:15 PM EDT REFERENCE RANGE: Normal: 4.0-5.6% Pre-diabetes: 5.7-6.4% Provisional diagnosis of diabetes: >6.4% Hgb F>10% and anything which shortens red cell survival, such as hemolytic anemia, or unstable hemoglobin variants such as HbSS, HbSC, or HbCC, will lower the HbA1c value associated with a given level of glycemic control. Rebeca Cox MD CHEMISTRY ORDERABLES Fin al Result Performing Organization Address City/[facility]/ZIP Co de Phone Number [facility] [address] [address] * (ABNORMAL) COMPREHENSIVE METABOLIC PANEL (05/09/2025 8:12 AM EDT) Pathologist [facility] Sodium 140 136 - 145 mmol/L 05/09/2025 3:11 PM EDT [facility] Potassium 4.2 3.5 - 5.0 mmol/L 05/09/2025 3:11 PM EDT [facility] Chloride 106 98 - 107 mmol/L 05/09/2025 3:11 PM EDT [facility] Total CO2 23 22 - 29 mmol/L 05/09/2025 3:11 PM EDT [facility] Anion Gap 11 7 - 16 mmol/L 05/09/2025 3:11 PM EDT [facility] Calcium 9.1 8.6 - 10.4 mg/dL 05/09/2025 3:11 PM EDT [facility] Glucose Lvl 111(H) 70 - 99 mg/dL 05/09/2025 3:11 PM EDT [facility] BUN 13 6 - 20 mg/dL 05/09/2025 3:11 PM EDT [facility] Creatinine 0.85 0.51 - 1.30 mg/dL 05/09/2025 3:11 PM EDT [facility] Albumin 4.4 3.5 - 5.2 gm/dL 05/09/2025 3:11 PM EDT [facility] Total Protein 6.8 6.4 - 8.3 gm/dL 05/09/2025 3:11 PM EDT [facility] Bili Total 0.2 0.2 - 1.3 mg/dL 05/09/2025 3:11 PM EDT [facility] ALT 17 <=41 U/L 05/09/2025 3:11 PM EDT [facility] AST 16 <=40 U/L 05/09/2025 3:11 PM EDT [facility] Alk Phos 61 36 - 123 U/L 05/09/2025 3:11 PM EDT [facility] eGFR (CKD-EPIcr 2020) 89 >=60 mL/min/1.7 3 m2 05/09/2025 3:11 PM EDT [facility] Comment:Estimated GFR was ca lculated using the CKD-EPIcr (2020) equation refit without race. The equation is recommended by the National Kidney Foundation - [place] [employer] Neph[employer] Task Force. Blood VENOUS BLOOD / Unknown Venipuncture / Unknown 05/09/2025 8:12 AM EDT 05/09/2025 8:12 AM EDT Rebeca Cox MD CHEMISTRY ORDERABLES Fin al Result Performing Organization Address [facility] de Phone Number [facility] [employer] , [place] [address] * TSH REFLEX TO FT4 (05/09/2025 8:12 AM EDT) TSH Reflex 1.330 0.270 - 4.200 mcIU/mL 05/09/2025 3:11 PM EDT [facility] Blood VENOUS BLOOD / Unknown Venipuncture / Unknown 05/09/2025 8:12 AM EDT 05/09/2025 8:12 AM EDT Narrative [facility] - 05/09/2025 3:11 PM EDT Ingestion of morgan doses of biotin (>5 mg/day) taken within 8 hours of drawing blood sample can interfere with this immunoassay test. Rebeca Cox MD CHEMISTRY ORDERABLES Fin al Result Performing Organization Address [facility] de Phone Number [facility] [employer] [address] , [place] [id number] * (ABNORMAL) LIPID SCREEN (05/09/2025 8:12 AM EDT) Cholesterol 190 <200 mg/dL 05/09/2025 3:11 PM EDT [employer] Comment: < 200 Desirable 200 - 239 Borderline High >= 240 High Triglyceride 105 <150 mg/dL 05/09/2025 3:11 PM EDT [facility] [employer], [place] Comment: < 150 Normal 150 - 199 Borderline High 200 - 499 High >= 500 Very High HDL 49 >=40 mg/dL 05/09/2025 3:11 PM EDT [facility] [employer] Comment: > 60 Optimal 40 - 60 Acceptable < 40 Low LDL Calculated 122(H) <100 mg/dL 05/09/2025 3:11 PM EDT [employer] [facility] Comment: < 100 Optimal 100 - 129 Near or above optimal 130 - 159 Borderline High 160 - 189 High >= 190 Very High The National Institutes of Health (NIH) equation is used for all lipid panels that report calculated LDL (LDL-C). Non-HDL-C Calculated 141(H) <=129 mg/dL 05/09/2025 3:11 PM EDT [employer] Comment: <130 Desirable 130-159 Above Desirable 160-189 Borderline High 190-219 High >= 220 Very High Fasting Specimen? Yes None 025 3:11 PM EDT [employer] Blood VENOUS BLOOD / Unknown Venipuncture / Unknown 05/09/2025 8:12 AM EDT 05/09/2025 8:12 AM EDT us Rebeca Cox MD CHEMISTRY ORDERABLES Fin al Result [facility] [employer] [address] [facility] , [place] [address] documented in this encounter Visit Diagnoses Diagnosis Annual physical exam- Primary Routine general medical examination at a health care facility Essential hypertension Unspecified essential hypertension Screening for iron deficiency anemia Screening for thyroid disorder Screening for endocrine, nutritional, metabolic and immunity disorder Screening for other and unspecified endocrine, nutritional, metabolic, and immunity disorders Screening for lipoid disorders Screening for diabetes mellitus IUD (intrauterine device) in place Presence of intrauterine contraceptive device Ganglion cyst of finger documented in this encounter Historical Medications * This list may reflect changes made after this encounter. metoprolol succinate (TOPROL-XL) 50 mg Oral Tablet Sustained Release 24 hr Take 50 mg by mouth daily. 03/25/2025 05/10/2025 hydroCHLOROthiazi de (MICROZIDE) 12.5 mg Oral Capsule Take 12.5 mg by mouth every morning. 03/25/2025 05/10/2025 amLODIPine (NORVASC) 10 mg Oral Tablet Take 10 mg by mouth daily. 03/25/2025 05/10/2025 added in this encounter Care Teams Associate Professor Of Surgery Relationship Specialty Start Date End Date Rebeca Cox MD [address] [place] [address] PCP - General Family Medicine 04/10/25 documented as of this encounter
--- OUTSIDE RECORDS SUMMARY | 2025-04-16 07:45 | XMS_ITS ---
Author Organization [facility] Address [address] [place] [address] [facility] [id number] Care Team Providers Care Senior Publications Specialist Name Role Phone Mecca Evans Unavailable [phone] Allergies No Known Allergies REASON FOR VISIT 3 weeks Encounters Encounter Location Date Provider Diagnosis [facility] [address] [place] [address] TERESA Nuñez [phone] 04/16/2025 [facility] Plan Of Treatment No Information Progress Notes * YESENIA ROTHOB: 7 (40 yo F)Acc No.[id number]:04/16/2025 Progress Notes Patient: ZAKIYA MALCOLM Provider: Gisselle Wing M.D. :1985 A ge:40 Y S ex:Female Date:04/16/2025 Address:[address] [place] [address] Subjective: * Chief Complaints: * 1 . 3 weeks. * HPI: C ardiology: 40 year old female presents with c/o Blood Pressure Elevated?Pt here for 3 week f/u on hypertension. . * ROS: D ERMATOLOGY: no R mara. [...] * Provider: Gisselle Wing M.D. Date: 0 04/16/2025 Generated for Dario donovan/Gerardo/Paty on: 0 06/03/2025 12:04 PM EDT History and Physical Notes * HPI (History of Present Illness) Category Sub-Category Detail Notes Category Not es Cardiology Blood Pressure Elevated Pt here for 3 week f/u on hypertension.
--- OUTSIDE RECORDS SUMMARY | 2025-04-25 10:15 | XMS_ITS | Encounter Summary ---
Author Organization [facility] Address [address] [place] [address] Care Team Providers Care Special Education Resource Teacher Name Role Phone Rebeca Cox MD Primary Care Provider + Reason for Visit * Reason Comments Pain Encounter Details Date Type Department Care Team (Late st Contact Info) Description 04/25/2025 10:15 AM EDT Office Visit [facility] [address] [place] [id number] Jeremias Daly MD [address] [place] [address] Mucous cyst of finger (Primary Dx); Finger pain, left Social History Tobacco Use Types Packs/Day Years Used Date Smoking Tobacco: Former Cigarettes Passive Smoke Exposure: Never Smokeless Tobacco: Never Alcohol Use Standard Drinks/Week Comments Yes 0 (1 standard drink = 0.6 oz pur e alcohol) PHQ-2 Answer Date Recorded PHQ-2 Total Score 0 04/10/2025 Comments No Sex and Gender Information Value Date Recorded Sex Assigned at Not on file Legal Sex Female 4:11 PM EDT Gender Identity Not on file Sexual Orientation Not on file documented as of this encounter Functional Status * Is the person deaf or does [...] Elias MA * Does this person have difficulty [...] as of this encounter Mental Status * Because of a physical, mental or emotional condition, does this person have serious difficulty concentrating, remembering or making decisions? Answer Entry Date Author No 04/10/2025 9:06 AM EDT Domonique Elias MA documented in this encounter Progress Notes * Sera Ashford Athletic Trainer - 04/25/2025 10:15 AM EDTAssociated Order(s): Small Joint Injection/Arthrocentesis: L ring PIP Small Joint Injection/Arthrocentesis: L ring PIP on 04/25/2025 10:15 AM Details: 22 G needle, dorsal approach Aspirate: 0 mL Outcome: tolerated well, no immediate complications Nothing came out on aspiration Procedure, treatment alternatives, risks and benefits explained, specific risks discussed. Consent was given by the patient. Immediately prior to procedure a time out was called to verify the correctpatient, procedure, equipment, intranet support and site/side marked as required. Patient was prepped and draped in the usual sterile fashion. * Jeremias Daly MD - 04/25/2025 10:15 AM EDT Images from the original note were not included. CC: Left ring finger mass History: The patient presents for left ring finger mass. The past 5 months she has had this mass onthe dorsum of the PIP joint of her ring finger. Just appeared. No injury. No skin changes. Does notreally hurt. Just cannot get her rings on and off now. No numbness tingling. Here for evaluation. PAST MEDICAL HISTORY: No past medical history on file. REVIEW OF SYSTEMS: ROS neg except for positives in HPI Physical Exam : There were no vitals filed for this visit. General: well appearing, pleasant with appropriate affect, no distress, alert and oriented to person, place and time. Gait: Ambulates into the office with symmetrical stable gait, without assitance Left upper Extremity: Skin: intact with no lesions Swelling dorsal PIP joint that seems consistent with likely cyst. Does feel fluid-filled and soft and mobile. Does not involve the skin. Does not move with the extensor tendon. No real tenderness to palpation. No instability. She is neurovascular intact. Right upper Extremity: No deformity, skin intact. No pain with ROM. No TTP. No instability. Strength intact. Motor intact ain/pin/r/u/m. SILT r/u/m. Radiology: AP, lateral, oblique of the left ring finger obtained today [facility] shows dorsal softtissue swelling with congruent joints. No acute osseous abnormality Impression: Left ring finger mass Plan: This point we talked about observation versus aspiration versus surgical excision. She would like to try aspirating it today. If it continues to bother returns or has any problems she can always sendus a message and we can get her arranged for surgical excision. Extensive risk benefits alternativetreatments were discussed. She expressed understanding. Procedure: After obtaining verbal consent discussed risk benefits, the ring finger was cleaned withalcohol. Using 21-gauge needle 2 attempts of aspiration were tried into the mass. No fluid was returned. A bandage was applied. She tolerated it well with no apparent complications. All questions and concerns were addressed today. Patient is in agreement with the plan. Jeremias Daly MD Hand & Upper Extremity Surgery Please note that this health education coordinator was created using voice recognition software. Any errors are unintentional and may be due to voice recognition health education coordinator. documented in this encounter Plan of Treatment Not on file documented as of this encounter Goals Goal Patient Goal Type Associated Problems Recent Progress Patient-Stated? Author Blood Pressure < 140/90 Blood Pressure 142/92(2024 9:50 AM EDT) No Rebeca Cox MD Maintain a healthy diet, exercise regularly and maintain an ideal body weight General No Domonique Elias MA Stay Tobacco Free Lifestyle No Rebeca Cox MD documented as of this encounter Procedures Procedure Name Priority Date/Time Associated Diagnosis Comments VT ARTHROCENTESIS ASPIR&/INJ SMALL JT/BURSA W/O US Routine 04/25/2025 10:15 AM EDT Finger pain, left Mucous cyst of finger documented in this encounter Results * XR FINGER LEFT MINIMUM 2 VW (04/25/2025 10:49 AM EDT) Narrative Genericuser, Audit - 04/25/2025 10:49 AM EDT Please see physician's note from office encounter for x-ray imaging result Jeremias Daly MD IMG DIAGNOSTIC IMAGING O RDERABLES Final Result * VT ARTHROCENTESIS ASPIR&/INJ SMALL JT/BURSA W/O US (04/25/2025 10:15 AM EDT) Narrative [facility] - 04/25/2025 10:15 AM EDT Sera Ashford Pilot Boat Deckhand 04/25/2025 11:01 AM Small Joint Injection/Arthrocentesis: L ring PIP on 04/25/2025 10:15 AM Details: 22 G needle, dorsal approach Aspirate: 0 mL Outcome: tolerated well, no immediate complications Nothing came out on aspiration Procedure, treatment alternatives, risks and benefits explained, specific risks discussed. Consent was given by the patient. Immediately prior to procedure a time out was called to verify the correct patient, procedure, equipment, intranet support and site/side marked as required. Patient was prepped and draped in the usual sterile fashion. Result [facility] Jeremias Daly MD PROCEDURE/MINOR SURGICAL ORDERABLES Final Result [facility] documented in this encounter Visit Diagnoses Diagnosis Mucous cyst of finger- Primary Finger pain, left Pain in limb Finger pain, left Pain in limb documented in this encounter Care Teams Special Education Resource Teacher Relationship Specialty Start Date End Date Rebeca Cox MD [address] [place] [id number] PCP - General Family Medicine 04/10/25 documented as of this encounter
--- OUTSIDE RECORDS SUMMARY | 2025-04-25 10:40 | XMS_ITS | Encounter Summary ---
Author Organization [facility] Address [address] [place] [address] Care Team Providers Care Auto Emissions Technician Name Role Phone Rebeca Cox MD Primary Care Provider + Encounter Details Date Type Department Care Team (Late st Contact Info) Description 04/25/2025 10:40 AM EDT Ancillary Procedure [facility] [address] [address] Jeremias Daly MD [address] [place] [address] Finger pain, left Social History Tobacco Use [...] Domonique Elias MA documented in this encounter Plan of Treatment [...] Procedure Name Priority Date/Time Associated Diagnosis Comments XR FINGER LEFT MINIMUM 2 VW Routine 04/25/2025 10:49 AM EDT Finger pain, left documented in this encounter Results * XR FINGER LEFT MINIMUM 2 VW (04/25/2025 10:49 AM EDT) Narrative MariouserCristy - 04/25/2025 10:49 AM EDT Please see physician's note from office encounter for x-ray imaging result us Jeremias Daly MD IMG DIAGNOSTIC IMAGING O RDERABLES Final Result documented in this encounter Visit Diagnoses Diagnosis Finger pain, left Pain in limb documented in this encounter Care Teams Auto Emissions Technician Relationship Specialty Start Date End Date Rebeca Cox MD [address], [place] [address] PCP - General Family Medicine 04/10/25 documented as of this encounter
--- OUTSIDE RECORDS SUMMARY | 2025-05-09 08:12 | XMS_ITS | Encounter Summary ---
Author Organization [place] [address] Care Team Providers Care Retail Marketing Coordinator Name Role Phone Rebeca Cox MD Primary Care Provider + Encounter Details Date Type Department Care Team (Latest Contact Info) Description 05/09/2025 8:12 AM EDT - 05/09/2025 11:59 PM EDT Hospital Encounter [facility] [address] [place] [address] [address] [place] [address] Screening for lipoid disorders; Screening for thyroid disorder; Screening for endocrine, nutritional, metabolic and immunity disorder; Screening for diabetes mellitus; Screening for iron deficiency anemia Discharge Disposition: Home or Self Care Social History Tobacco Use Types Packs/Day Years [...] Domonique Elias MA documented in this encounter Medications at Time of Discharge amLODIPine (NORVASC) 10 mg Oral Tablet Take 10 mg by mouth daily. 03/25/2025 05/10/2025 hydroCHLOROthiazi de (MICROZIDE) 12.5 mg Oral Capsule Take 12.5 mg by mouth every morning. 03/25/2025 05/10/2025 lisinopriL (PRINIVIL;ZESTRIL ) 40 mg Oral Tablet Take by mouth daily. 05/10/2025 metoprolol succinate (TOPROL-XL) 50 mg Oral Tablet Sustained Release 24 hr Take 50 mg by mouth daily. 03/25/2025 05/10/2025 documented as of this encounter Discharge Disposition Disposition Code Departure Means Destination Home or Self Care documented in this encounter Plan of Treatment [...] Procedure Name Priority Date/Time Associated Diagnosis Comments TSH REFLEX TO FT4 Routine 05/09/2025 8:1 2 AM EDT Screening for thyroid disorder CBC Routine 05/09/2025 8:12 AM EDT Screening for iron deficiency anemia HEMOGLOBIN A1C Routine 05/09/2025 8:12 AM EDT Screening for diabetes mellitus LIPID SCREEN Routine 05/09/2025 8:12 AM EDT Screening for lipoid disorders COMPREHENSIVE METABOLIC PANEL Routine 05/09/2025 8:12 AM EDT Screening for endocrine, nutritional, metabolic and immunity disorder documented in this encounter Results * (ABNORMAL) CBC (05/09/2025 [...] 1:06 PM EDT [facility] Platelet 277 155 - 369 x10(3)/mcL 05/09/2025 1:06 PM EDT [facility] MPV 11.6 8.8 - 12.5 fL 05/09/2025 1:06 PM EDT [facility] Blood VENOUS BLOOD / Unknown Venipuncture / Unknown 05/09/2025 8:12 AM EDT 05/09/2025 8:12 AM EDT Rebeca Cox MD HEMATOLOGY ORDERABLES Fi nal Result Performing Organization Address [facility] de Phone Number [facility] [employer] [address] , [place] [address] * HEMOGLOBIN A1C (05/09/2025 8:12 AM EDT) Hgb A1C 5.5 4.2 - 5.6 % 05/09/2025 4:15 PM EDT [facility] [employer] Est. Avg Glucose 111 mg/dL 05/09/2025 4:15 PM EDT [facility] [employer] Blood VENOUS BLOOD / Unknown Venipuncture / Unknown 05/09/2025 8:12 AM EDT 05/09/2025 8:12 AM EDT Narrative [facility] [employer] [employer] - 05/09/2025 4:15 PM EDT REFERENCE RANGE: Normal: 4.0-5.6% Pre-diabetes: 5.7-6.4% Provisional diagnosis of diabetes: >6.4% Hgb F>10% and anything which shortens red cell survival, such as hemolytic anemia, or unstable hemoglobin variants such as HbSS, HbSC, or HbCC, will lower the HbA1c value associated with a given level of glycemic control. Rebeca Cox MD CHEMISTRY ORDERABLES Fin al Result Performing Organization Address [facility] de Phone Number [email or web address], [address] , [place] [address] * (ABNORMAL) COMPREHENSIVE METABOLIC PANEL (05/09/2025 8:12 AM EDT) Sodium 140 136 - 145 mmol/L 05/09/2025 3:11 PM EDT [facility] [employer] Potassium 4.2 3.5 - 5.0 mmol/L 05/09/2025 3:11 PM EDT [facility] Chloride 106 98 - 107 mmol/L 05/09/2025 3:11 PM EDT [facility] Total CO2 23 22 - 29 mmol/L 05/09/2025 3:11 PM EDT [facility] Anion Gap 11 7 - 16 mmol/L 05/09/2025 3:11 PM EDT [facility] Calcium 9.1 8.6 - 10.4 mg/dL 05/09/2025 3:11 PM EDT [facility] Glucose Lvl 111(H) 70 - 99 mg/dL 05/09/2025 3:11 PM EDT [facility] BUN 13 6 - 20 mg/dL 05/09/2025 3:11 PM EDT [facility] Creatinine 0.85 0.51 - 1.30 mg/dL 05/09/2025 3:11 PM EDT [facility] Albumin 4.4 3.5 - 5.2 gm/dL 05/09/2025 3:11 PM EDT [facility] Total Protein 6.8 6.4 - 8.3 gm/dL 05/09/2025 3:11 PM EDT [facility] Bili Total 0.2 0.2 - 1.3 mg/dL 05/09/2025 3:11 PM EDT [facility] ALT 17 <=41 U/L 05/09/2025 3:11 PM EDT [facility] AST 16 <=40 U/L 05/09/2025 3:11 PM EDT [facility] Alk Phos 61 36 - 123 U/L 05/09/2025 3:11 PM EDT [facility] eGFR (CKD-EPIcr 2020) 89 >=60 mL/min/1.7 3 m2 05/09/2025 3:11 PM EDT [facility] Comment:Estimated GFR was ca lculated using the CKD-EPIcr (2020) equation refit without race. The equation is recommended by the National Kidney Foundation - [place] [employer] Neph[employer] Task Force. Blood VENOUS BLOOD / Unknown Venipuncture / Unknown 05/09/2025 8:12 AM EDT 05/09/2025 8:12 AM EDT us Rebeca Cox MD CHEMISTRY ORDERABLES Fin al Result [facility], [address] , [place] [address] * TSH REFLEX TO FT4 (05/09/2025 8:12 AM EDT) TSH Reflex 1.330 0.270 - 4.200 mcIU/mL 05/09/2025 3:11 PM EDT [facility] [employer] [facility] Blood VENOUS BLOOD / Unknown Venipuncture / Unknown 05/09/2025 8:12 AM EDT 05/09/2025 8:12 AM EDT Narrative [facility] [employer] [facility] - 05/09/2025 3:11 PM EDT Ingestion of morgan doses of biotin (>5 mg/day) taken within 8 hours of drawing blood sample can interfere with this immunoassay test. us Rebeca Cox MD CHEMISTRY ORDERABLES Fin al Result [facility] [employer] , [place] [address] * (ABNORMAL) LIPID SCREEN (05/09/2025 8:12 AM EDT) Cholesterol 190 <200 mg/dL 05/09/2025 3:11 PM EDT [facility] [employer] Comment: < 200 Desirable 200 - 239 Borderline High >= 240 High Triglyceride 105 <150 mg/dL 05/09/2025 3:11 PM EDT [facility] [employer] Comment: < 150 Normal 150 - 199 Borderline High 200 - 499 High >= 500 Very High HDL 49 >=40 mg/dL 05/09/2025 3:11 PM EDT [facility] [employer] Comment: > 60 Optimal 40 - 60 Acceptable < 40 Low LDL Calculated 122(H) <100 mg/dL 05/09/2025 3:11 PM EDT [employer] Comment: < 100 Optimal 100 - 129 Near or above optimal 130 - 159 Borderline High 160 - 189 High >= 190 Very High The National Institutes of Health (NIH) equation is used for all lipid panels that report calculated LDL (LDL-C). Non-HDL-C Calculated 141(H) <=129 mg/dL 05/09/2025 3:11 PM EDT [employer] Comment: <130 Desirable 130-159 Above Desirable 160-189 Borderline High 190-219 High >= 220 Very High Fasting Specimen? Yes None 025 3:11 PM EDT [employer] Blood VENOUS BLOOD / Unknown Venipuncture / Unknown 05/09/2025 8:12 AM EDT 05/09/2025 8:12 AM EDT us Rebeca Cox MD CHEMISTRY ORDERABLES Fin al Result [facility] [employer] [address] [facility] , [place] [address] documented in this encounter Visit Diagnoses Diagnosis Screening for lipoid disorders Screening for thyroid disorder Screening for endocrine, nutritional, metabolic and immunity disorder Screening for other and unspecified endocrine, nutritional, metabolic, and immunity disorders Screening for diabetes mellitus Screening for iron deficiency anemia documented in this encounter Care Teams Retail Marketing Coordinator Relationship Specialty Start Date End Date Rebeca Cox MD [address] [place] [address] PCP - General Family Medicine 04/10/25 documented as of this encounter
--- OUTSIDE RECORDS SUMMARY | 2025-05-10 10:15 | XMS_ITS | Encounter Summary ---
Author Organization [place] [address] Care Team Providers Care Intelligence Specialist Name Role Phone Rebeca Cox MD Primary Care Provider + Reason for Visit * Reason Comments Follow-up Encounter Details Date Type Department Care Team (Late st Contact Info) Description 05/10/2025 10:15 AM EDT Office Visit [facility] [address] [place] [id number] Rebeca Cox MD [address] [place] [id number] Essential hypertension (Primary Dx); Cervical cancer screening Social History Tobacco Use Types Packs/Day Years Used Date Smoking Tobacco: Former Cigarettes 1 20 Passive Smoke Exposure: Never Smokeless Tobacco: Never Alcohol Use Standard Drinks/Week Comments Yes 2 (1 standard drink = 0.6 oz pur e alcohol) PHQ-2 Answer Date Recorded PHQ-2 Total Score 0 04/10/2025 Sexually Active Control Partners Comments Yes I.U.D. Female Comments No Sex and Gender Information Value Date Recorded Sex Assigned at Not on file Legal Sex Female 4:11 PM EDT Gender Identity Not on file Sexual Orientation Not on file documented as of this encounter Last Filed Vital Signs Vital Sign Reading Time Taken Comments Blood Pressure 142/92 05/10/2025 9:50 AM EDT Pulse 71 05/10/2025 9:50 AM EDT Temperature 36.8 C (98.3 F) 05/10/2025 9:50 AM EDT Respiratory Rate - - Oxygen Saturation 99% 05/10/2025 9:50 AM EDT Inhaled Oxygen Concentration - - Weight 100.5 kg (221 lb 9.6 oz) 05/10/2025 9:50 AM EDT Height - - Body Mass Index 34.71 01/31/2025 4:27 PM EDT documented in this encounter Functional Status * Is the [...] Entry Date Author No 04/10/2025 9:06 AM TONIT Domonique Elias MA documented in this encounter Ordered Prescriptions Prescription Sig Dispense Quantity Refills Last Filled Start Date End Date hydroCHLOROthiazide 25 mg Oral TabletIndications:E ssential hypertension Take 1 Tablet by mouth daily. 90 Tablet 3 05/10/2025 metoprolol succinate (TOPROL-XL) 50 mg Oral Tablet Sustained Release 24 hrIndications:Essen tial hypertension Take 1 Tablet by mouth daily. 90 Tablet 3 05/10/2025 lisinopriL (PRINIVIL;ZESTRIL) 40 mg Oral TabletIndications:E ssential hypertension Take 1 Tablet by mouth daily. 90 Tablet 3 05/10/2025 amLODIPine (NORVASC) 10 mg Oral TabletIndications:E ssential hypertension Take 1 Tablet by mouth daily. 90 Tablet 3 05/10/2025 documented in this encounter Progress Notes * Rebeca Cox MD - 05/10/2025 10:15 AM EDTAssociated Problem(s): Essential hypertension Goal BP: <130/80 BP Readings from Last 3 Encounters: 05/10/25 (!) 142/92 04/10/25 (!) 146/86 01/31/25 (!) 174/92 - not at goal Compliance: - compliant with medications Home Blood Pressure Monitoring: - continue home BP monitoring as previous and bring readings to each office visit Advice: - continue a low salt diet and remain physically active Medication Management: - medication management decisions took place at today's visit (see orders) increase HCTZ to 25mg today cont amlodpine, lisinopril, metoprolol as previous check BP at home and let me know trend in about a month Orders: amLODIPine (NORVASC) 10 mg Oral Tablet; Take 1 Tablet by mouth daily. lisinopriL (PRINIVIL;ZESTRIL) 40 mg Oral Tablet; Take 1 Tablet by mouth daily. metoprolol succinate (TOPROL-XL) 50 mg Oral Tablet Sustained Release 24 hr; Take 1 Tablet by mouth daily. hydroCHLOROthiazide 25 mg Oral Tablet; Take 1 Tablet by mouth daily. * Rebeca Cox MD - 05/10/2025 10:15 AM EDT Vitals: 05/10/25 0950 BP: (!) 142/92 BP Location: Left arm Patient Position: Sitting Pulse: 71 Temp: 98.3 ??F (36.8 ??C) TempSrc: Forehead SpO2: 99% Weight: 221 lb 9.6 oz (100.5 kg) Body mass index is 34.71 kg/m??. SUBJECTIVE: Chief Complaint Patient presents with Follow-up HPI: Hypertension: 1 month follow up Home reporting of hypertension was reviewed at time of visit. Marlin denies any episodes of dizziness, lightheadedness, presyncope, syncope, headache, or chest pain. Marlin does not report any new symptoms of possible hypertension sequelae. The patient reports that she is not having significantissues or side effects of current medications/treatments. Also here for Pap smear. LMP unknown due to IUD Review of Systems Constitutional: Negative for chills, fatigue and fever. Respiratory: Negative for cough, chest tightness and shortness of breath. Cardiovascular: Negative for chest pain, palpitations and leg swelling. OBJECTIVE: Physical Exam Vitals reviewed. Constitutional: Appearance: She is normal weight. She is not toxic-appearing or diaphoretic. HENT: Head: Normocephalic and atraumatic. Nose: Nose normal. Eyes: Extraocular Movements: Extraocular movements intact. Conjunctiva/sclera: Conjunctivae normal. Cardiovascular: Rate and Rhythm: Normal rate and regular rhythm. Pulses: Normal pulses. Heart sounds: Normal heart sounds. Pulmonary: Effort: Pulmonary effort is normal. Breath sounds: Normal breath sounds. Musculoskeletal: General: Normal range of motion. Cervical back: Normal range of motion. Skin: General: Skin is warm. Neurological: General: No focal deficit present. Mental Status: She is alert. Mental status is at baseline. Psychiatric: Mood and Affect: Mood normal. Behavior: Behavior normal. Assessment & Plan Essential hypertension Goal BP: <130/80 BP Readings from Last 3 Encounters: 05/10/25 (!) 142/92 04/10/25 (!) 146/86 01/31/25 (!) 174/92 - not at goal Compliance: - compliant with medications Home Blood Pressure Monitoring: - continue home BP monitoring as previous and bring readings to each office visit Advice: - continue a low salt diet and remain physically active Medication Management: - medication management decisions took place at today's visit (see orders) increase HCTZ to 25mg today cont amlodpine, lisinopril, metoprolol as previous check BP at home and let me know trend in about a month Orders: amLODIPine (NORVASC) 10 mg Oral Tablet; Take 1 Tablet by mouth daily. lisinopriL (PRINIVIL;ZESTRIL) 40 mg Oral Tablet; Take 1 Tablet by mouth daily. metoprolol succinate (TOPROL-XL) 50 mg Oral Tablet Sustained Release 24 hr; Take 1 Tablet by mouth daily. hydroCHLOROthiazide 25 mg Oral Tablet; Take 1 Tablet by mouth daily. Cervical cancer screening Orders: [facility] MAGICIAN/ILLUSIONIST CYTOLOGY ORDER; Future Labs overall stable LDL 122, all others wnl documented in this encounter Plan of Treatment [...] Procedure Name Priority Date/Time Associated Diagnosis Comments MAGICIAN/ILLUSIONIST CYTOLOGY REQUEST (PAP ONLY) Routine 05/10/2025 10:14 AM EDT Cervical cancer screening TRICHOMONAS VAGINALIS BY TMA (PAP PANEL) Routine 05/10/2025 10:14 AM EDT Cervical cancer screening GC CHLAMYDIA THIN PREP Routine 05/10/2025 10:14 AM EDT Cervical cancer screening [facility] MAGICIAN/ILLUSIONIST CYTOLOGY ORDER Routine 05/10/2025 10:14 AM EDT Cervical cancer screening HPV HIGH RISK WITH REFLEX TO GENOTYPE Routine 05/10/2025 10:14 AM EDT Cervical cancer screening documented in this encounter Results * TRICHOMONAS VAGINALIS BY TMA (PAP PANEL) (05/10/2025 10:14 AM EDT) Trichomonas vaginalis by TMA Not Detected Not Detected 05/14/2025 3:10 AM EDT [facility] [employer], [facility] Thin Prep PART OF UTERINE CERVIX / Unknown 05/10/2025 10:14 AM EDT 05/10/2025 10:14 AM EDT [facility] [employer] - 05/14/2025 3:10 AM EDT Test methodology is accounting auditor mediated amplification (TMA) using the Aptima Trichomonas vaginalis assay from [employer]. A negative result does not completely rule out a Trichomonas vaginalis infection due to potential inhibitors or levels present below the limit of detection of this assay. Results are dependent on proper collection and transport of specimen. This test is indicated for medical purposes only and should not be used for legal or forensic purposes. us Rebeca Cox MD MICROBIOLOGY - GENERAL O RDERABLES Final Result [employer] [address] [facility] , [address] [place] [id number] * GC CHLAMYDIA THIN PREP (05/10/2025 10:14 AM EDT) Chlamydia trachomatis Not Detected Not Detected 05/14/2025 3:25 AM EDT [employer] Neisseria gonorrhoeae Not Detected Not Detected 05/14/2025 3:25 AM EDT [employer] Thin Prep PART OF UTERINE CERVIX / Unknown 05/10/2025 10:14 AM EDT 05/10/2025 10:14 AM EDT [facility] [employer] - 05/14/2025 3:25 AM EDT Testing methodology is accounting auditor mediated amplification (TMA) using the Aptima Combo 2 assay from [employer]. A negative result does not completely rule out a Chlamydia trachomatis or Neisseria gonorrhoeae infection due to potential inhibitors or levels present below the limit of detection by this assay. Results are dependent on proper collection and transport of specimen. This test is indicated for medical purposes only and should not be used for legal or forensic purposes. The performance characteristics of this assay were validated by the testing laboratory. This assay is FDA cleared to test the following specimens: clinician-collected endocervical, vaginal, male urethral swab specimens, rectal swabs, and throat/pharyngeal swabs; patient collected vaginal specimens within a clinic setting; Thin Prep Specimens in [employer]; and first-stream, unpreserved male and female urine specimens. Detailed methodology is available upon request. Rebeca Cox MD MICROBIOLOGY - GENERAL O RDERABLES Final Result [facility] [employer] [address] [facility] , [place] [address] * HPV HIGH RISK WITH REFLEX TO GENOTYPE (05/10/2025 10:14 AM EDT) HPV HR Reflex Not Detected Not Detected 025 7:40 AM EDT [employer] Thin Prep PART OF UTERINE CERVIX / Unknown 05/10/2025 10:14 AM EDT 05/10/2025 10:14 AM EDT Narrative [facility] [employer] - 05/14/2025 7:40 AM EDT This test was performed using the FDA Approved APTIMA HPV mRNA assay which detects E6/E7 messenger RNA of High Risk HPV types (16, 18, 31, 33, 35, 39, 45, 51, 52, 56, 58, 59, 66, and 68). This assay is intended for use in women 21 years or older with ASC-US cervical cytology or women 30 years or older. This assay is not intended to substitute for regular cervical cytology screening. Detection of HPV using the APTIMA HPV Assay does not differentiate HPV types and cannot evaluate persistence of any one type. The use of this assay has not been evaluated for the management of HPV vaccinated women, women with prior ablative or excisional therapy, hysterectomy, or who are . Sensitivities may be affected by collection methods, stage of infection, and the presence of interfering substances. Results of this assay should be interpreted in conjunction with other available laboratory and clinical data. Rebeca Cox MD MICROBIOLOGY - GENERAL O RDERABLES Final Result Performing Organization Address City/[facility]/ZIP Co de Phone Number [facility] [employer] [address] [facility] , [place] [address] * MAGICIAN/ILLUSIONIST CYTOLOGY REQUEST (PAP ONLY) (05/10/2025 10:14 AM EDT) CASE REPORT Gynecologic Cytology Report Case: [id number] Authorizing Provider: Rebeca Cox MD Collected: 05/10/2025 1014 Ordering Location: [facility] Received: 05/10/2025 1014 First Screen: Rolando Augustin CT Specimen: LIQUID-BASED PAP - CERVICAL, Cervix 05/14/2025 12:44 PM EDT [facility] PAP FINAL DIAGNOSIS Negative for intraepithelial lesion or malignancy 05/14/2025 12:44 PM EDT [facility] at 1244 EDT MICROSCOPIC DESCRIPTION Microscopic examination is performed and the findings corroborate the diagnosis. 05/14/2025 12:44 PM EDT [facility] PAP SMEAR ADEQUACY Satisfactory for evaluation 05/14/2025 12:44 PM EDT [facility] ENDOCERVICAL T-ZONE Transformation zone absent. 05/14/2025 12:44 PM EDT [facility] EMBEDDED IMAGES 12:44 PM EDT [facility] PAP DISCLAIMER The Pap Smear is a screening test that aids in the detection of cervical cancer and cancer precursors. Both false positive and false negative results can occur. The test should be used at regular intervals, and positive results should be confirmed before definitive therapy. Processed using the ThinPrep Tear Down Worker Automated cytology screening device ([employer]). 05/14/2025 12:44 PM EDT [facility] Thin Prep PART OF UTERINE CERVIX / Unknown 05/10/2025 10:14 AM EDT 05/10/2025 10:14 AM EDT us Rebeca Cox MD CYTOLOGY ORDERABLES Snow l Result [facility] [address] [place] [phone] documented in this encounter Visit Diagnoses Diagnosis Essential hypertension- Primary Unspecified essential hypertension Cervical cancer screening Screening for malignant neoplasm of the cervix documented in this encounter Discontinued Medications Medication Sig Discontinue Reason Start Date End Da te hydroCHLOROthiazide (MICROZIDE) 12.5 mg Oral Capsule Take 12.5 mg by mouth every morning. Cancelled by 03/25/2025 05/10/2025 lisinopriL (PRINIVIL;ZESTRIL) 40 mg Oral Tablet Take by mouth daily. Reorder 05/10/2025 amLODIPine (NORVASC) 10 mg Oral Tablet Take 10 mg by mouth daily. Reorder 03/25/2025 05/10/2025 metoprolol succinate (TOPROL-XL) 50 mg Oral Tablet Sustained Release 24 hr Take 50 mg by mouth daily. Reorder 03/25/2025 05/10/2025 documented as of this encounter Care Teams Intelligence Specialist Relationship Specialty Start Date End Date Rebeca Cox MD [address] [place] [address] PCP - General Family Medicine 04/10/25 documented as of this encounter
[2025-06-03] VITALS (7 sets, daily range): BP systolic 115–135; BP diastolic 70–84; PULSE 52–66; RESP 12–20; TEMP 36.7–36.8; O2SAT 95–100; BMI 33.6
--- NOTE | 2025-06-03 11:43 | ED_ITS ---
Discharge Plan Disposition Patient Disposition: Home, Self-Care Prescriptions Prescriptions: No Action lisinopril 40 mg tablet PO Patient Comments: TAKE ONE TABLET BY MOUTH EVERY DAY lidocaine 4 % adhesive patch,medicated 1 patch topical DAILY Qty: 5 0RF Rx Instructions: may leave on for up to 12 hrs ibuprofen 800 mg tablet 800 mg PO TID PRN (Reason: pain) 7 Days Qty: 20 0RF cyclobenzaprine 5 mg tablet 5 mg PO TID PRN (Reason: muscle spasm) 5 Days Qty: 15 0RF Referrals Follow up/Referrals: Provider,Referral, MD [Primary Care Provider, Medical] - See instructions Activity Restrictions/Add. Instructions Additional Instructions/Restrictions: You have been seen and evaluated the emergency department. Please continue all home medications as previously prescribed. If your symptoms are persistent, I would recommend that you decrease your hydrochlorothiazide back down to 12.5mg. Return to the emergency department with further recurrent episodes, otherwise follow-up with your PCP. Clinical Impressions Clinical Impression: Vasovagal syncope Stand Alone Forms Stand Alone Forms: Work/School Release Instructions Patient Instructions: DI for Syncope in Adults (Fainting), DI for Syncope in Children (Fainting) Print Language Print Language: Indonesian Discharge ED Provider: Alem Avelar General Chief Complaint: Syncope Stated Complaint: SYNCOPE Time Seen by Provider: 06/03/25 11:42 History of Present Illness HPI narrative: This is a 40-year-old female with history of hypertension who presents emergency department after syncopal episode. She states she got up to use the restroom while at the EMS station. She then felt suddenly lightheaded, flushed, and passed out. Denies significant neck pain. Reports a mild headache. Denies any associated chest pain, shortness of breath, or lower extremity edema. She takes lisinopril, amlodipine, and hydrochlorothiazide. She states she recently had a dose increase from 12.5-25 of the hydrochlorothiazide 2 weeks ago. Reports adequate water intake during the day. No recent fevers or illnesses. Denies urinary symptoms. Denies possibility of . Denies any alcohol or drug use. Related Data Home Medications ?Medication ?Instructions ?Recorded ?Confirmed lisinopril 40 mg tablet mg PO 10/29/24 10/29/24 Previous Rx's ?Medication ?Instructions ?Recorded cyclobenzaprine 5 mg tablet 5 mg PO TID PRN muscle spa sm 5 05/07/25 days #15 tabs ibuprofen 800 mg tablet 800 mg PO TID PRN pain 7 day s #20 05/07/25 tabs lidocaine 4 % topical patch 1 patch topical DAILY #5 e a 05/07/25 Allergies Allergy/AdvReac Type Severity Reaction Status Date / Time capsaicin Allergy Verified 10/29/24 09:58 [facility] Disclaimer: The information contained in this section may have been updated after the patient was seen, as this information can be updated by other users. Medical History (Updated 06/03/25 @ 13:34 by Alem Avelar DO) Hx of Crohn's disease History of high blood pressure History of pre-eclampsia Surgical History (Updated 10/29/24 @ 10:00 by Carolyn Stephens MA) Hx of resection of small bowel Social History (Updated 10/29/24 @ 10:28 by Carolyn Stephens MA) Smoking Status: Never smoker alcohol intake: current alcohol intake frequency: holidays/special occasions only current occupational status: employed Travel in the last 8 weeks?: None Have you lived/traveled outside [place] in past 30 days?: No Contact w/someone who lives/traveled outside [place] past 30 days?: No Exposure to someone with infectious disease in past 14 days?: No Do you have a fever (greater than 100.4 F or 38 C)?: No Have you tested positive for COVID-19?: No Exposed to someone with COVID-19 in past 14 days?: No Do you have a sore throat?: No Do you have a cough?: No Do you have any weakness?: No Do you have any diarrhea?: No Are you experiencing any unusual bleeding?: No Do you have any muscle aches/pain?: No Do you have any abdominal pain?: No Are you experiencing loss of taste or smell?: No Other Medical History Have you received the Flu Vaccine for this season: No Have you received the Pneumonia Vaccine: No ROS Obtained: Yes All systems reviewed & no additional complaints except as documented Physical Exam General General appearance: alert and in no apparent distress Head Head exam: atraumatic and normocephalic Eye Eye exam: Present PERRL ENT ENT exam: Present mucous membranes moist Neck Neck exam: Present normal inspection Chest Chest inspection: Present symmetric chest wall rise; Absent tenderness Respiratory Respiratory exam: Present normal lung sounds bilaterally; Absent respiratory distress, wheezes or accessory muscle use Cardiovascular Cardiovascular exam: Present regular rate and normal rhythm Abdominal Exam Abdominal exam: Present soft; Absent distention or tenderness Extremities Exam Extremities exam: Present normal inspection; Absent tenderness Neurological Exam Neurological exam: Present alert and oriented X3 Psychiatric Psychiatric exam: Present normal affect Skin Skin exam: Present warm and dry HEART Score HEART Score HEART Score assessment performed?: Yes HEART Score: 2 Critical Care Critical Care Time Critical Care Time: No Medical Decision Making Black Inquiry Pt receiving controlled substance: No Black was queried for this patient: No Vital Signs Vital Signs: 06/03/25 11:56 06/03/25 12:00 06/03/25 12:30 Temperature 98.2 F Temperature Source Oral Pulse Rate 56 L 53 L Pulse Rate [Left Radial] 62 Pulse Rate [Orthostatic Lying] Pulse Rate [Orthostatic Sitting] Pulse Rate [Orthostatic Standing] Respiratory Rate 17 12 12 Blood Pressure 132/81 115/78 Blood Pressure [Orthostatic Lying] Blood Pressure [Orthostatic Sitting] Blood Pressure [Orthostatic Standing] Blood Pressure [Right Arm] 121/73 Blood Pressure Mean 90 Blood Pressure Mean [Right Arm] 89 Blood Pressure Source Blood Pressure Source [Right Arm] Automatic Cuff Blood Pressure Position Blood Pressure Position [Right Arm] Sitting 02 Sat by Pulse Oximetry 100 100 99 Oxygen Delivery Method Room Air 06/03/25 12:37 06/03/25 13:15 06/03/25 13:17 Temperature Temperature Source Pulse Rate 54 L 65 52 L Pulse Rate [Left Radial] Pulse Rate [Orthostatic Lying] Pulse Rate [Orthostatic Sitting] Pulse Rate [Orthostatic Standing] Respiratory Rate 20 14 19 Blood Pressure 122/84 123/79 Blood Pressure [Orthostatic Lying] Blood Pressure [Orthostatic Sitting] Blood Pressure [Orthostatic Standing] Blood Pressure [Right Arm] Blood Pressure Mean 99 Blood Pressure Mean [Right Arm] Blood Pressure Source Automatic Cuff Blood Pressure Source [Right Arm] Blood Pressure Position Supine Blood Pressure Position [Right Arm] 02 Sat by Pulse Oximetry 100 95 99 Oxygen Delivery Method Room Air Room Air Room Air 06/03/25 13:17 06/03/25 13:36 Temperature 98.0 F Temperature Source Oral Pulse Rate 66 Pulse Rate [Left Radial] Pulse Rate [Orthostatic Lying] 52 L Pulse Rate [Orthostatic Sitting] 58 L Pulse Rate [Orthostatic Standing] 60 Respiratory Rate 18 Blood Pressure 123/70 Blood Pressure [Orthostatic Lying] 123/79 Blood Pressure [Orthostatic Sitting] 121/82 Blood Pressure [Orthostatic Standing] 135/84 Blood Pressure [Right Arm] Blood Pressure Mean Blood Pressure Mean [Right Arm] Blood Pressure Source Automatic Cuff Blood Pressure Source [Right Arm] Blood Pressure Position Sitting Blood Pressure Position [Right Arm] 02 Sat by Pulse Oximetry Oxygen Delivery Method Room Air Lab Data Lab results reviewed: Yes I reviewed the patient's lab results. Labs: Lab Results 06/03/25 11:40: WBC 13.8 H, RBC 5.09, Hgb 15.2, Hct 44.3, MCV 87.0, MCH 29.9, MCHC 34.3, RDW 12.3, Plt Count 374, MPV 11.1 H, Neut % (Auto) 55.2, Lymph % (Auto) 37.8, [place] % (Auto) 4.6, Eos % (Auto) 1.4, Baso % (Auto) 0.7, Neut # (Auto) 7.6, Lymph # (Auto) 5.2 H, [place]lee # (Auto) 0.6, Eos # (Auto) 0.2, Baso # (Auto) 0.1, Total Counted 100, Neutrophils % (Manual) 61, Lymphocytes % (Manual) 35, Monocytes % (Manual) 2, Eosinophils % (Manual) 2, Platelet Estimate Normal, RBC Morphology Normal, D-Dimer 0.60 H, VBG pH 7.46 H, VBG pCO2 32.5 L, VBG pO2 63.2 H, VBG HCO3 22.4 L, VBG Total CO2 23.4, VBG O2 Saturation 93.8 H, VBG Base Excess -1.4, VBG Lactic Acid 3.2 H, Sodium 136, Potassium 4.4, Chloride 102, C arbon Dioxide 21 L, Anion Gap 17.4 H, BUN 18 H, Creatinine 1.00, Estimated GFR 62, Est GFR ( Amer) 75, Glucose 117 H, Calcium 10.4 H, Total Bilirubin 0.6, AST 36, ALT 27, Alkaline Phosphatase 64, Total Protein 8.2, Albumin 4.9, G lobulin 3.3 H, Albumin/Globulin Ratio 1.5, Lipase 80, Serum HCG, Qual Negative 06/03/25 12:08: Troponin I < 0.01 06/03/25 11:40 06/03/25 11:40 Response Orders (Tests/Meds): ED MEDICATIONS Discontinued Medications Generic Name Dose Route Start Last Admin Trade Name Jacoby PRN Reason Stop Dose Admin Acetaminophen 1,000 mg 06/03/25 11:58 06/03/25 12:05 Acetaminophen 500mg Tab PO 06/03/25 11:59 1,000 mg ONCE ONE Administration ORDERS Category Date Time Status Chest XR -- portable [XR chest portable] Stat Exams 06/03/25 11:55 Completed CBC w/Auto Diff [Complete Blood Count Auto Diff] Stat Lab 06/03/25 11:40 Completed CMP [Comprehensive Metabolic Panel] Stat Lab 06/03/25 11:40 Completed D-Dimer Stat Lab 06/03/25 11:40 Completed Lactate Venous Stat Lab 06/03/25 12:43 Ordered Lipase Stat Lab 06/03/25 11:40 Completed Serum Beta HCG [HCG Qualitative, Serum] Stat Lab 06/03/25 11:40 Completed Troponin I Q3H Lab 06/03/25 12:08 Completed VBG [Venous Blood Gas] Stat RT 06/03/25 11:40 Completed MDM Narrative Medical Decision Narrative: 40-year-old female with history of hypertension presenting the emergency department after a syncopal episode. Differential diagnosis includes but is not limited to vasovagal syncope, symptomatic bradycardia, overdiuresis, BRADLY, severe electrolyte abnormality, hypoglycemia, among others. On my initial assessment, the patient is hemodynamically stable in no acute distress. We discussed that her HCTZ has recently been uptitrated from 12.5-25. This change was made 2 weeks ago. EKG shows normal sinus rhythm at a rate of 58. Normal intervals. Normal axis. Potential LVH. No acute ischemic changes. CBC shows mild nonspecific leukocytosis. D-dimer is mildly elevated at 0.60. Using the years criteria, no indication for imaging and low risk for PE. ABG shows a mild metabolic alkalosis with a lactate of 3.2. This likely represents dehydration. CMP with no severe electrolyte abnormalities. Anion gap is 17.4. Creatinine within normal limits. LFTs grossly normal. Negative serum hCG. Troponin less than 0.01. Chest x-ray with no acute findings on my read. On reassessment, the patient reports improvement in her symptoms. She is no longer orthostatic. I discussed medication plan with her at home. Considering her recent increase in HCTZ, I suggested that if she remains symptomatic, she should decrease this medication. Otherwise, she should increase her overall fluid intake.
--- NOTE | 2025-06-03 11:53 | ECG_ITS ---
APPROVED REPORT Exam: Resting ECG HR:50 bpm ECG Measurements Heart Rate 50 AXES TN 178 P 62 QRSd 101 QRS 78 QT 431 T 55 QTc 404 Conclusion SINUS BRADYCARDIA NONSPECIFIC ST & T-WAVE ABNORMALITY BORDERLINE ECG UNCONFIRMED REPORT Electronically signed by : EDELMIRA BOSCH, 06/03/2025 23:01:13
--- NOTE | 2025-06-03 11:55 | XR_ITS ---
FINAL REPORT CLINICAL HISTORY: Shortness of breath COMPARISON: None FINDINGS: CHEST 1 VIEW The heart size is normal. The mediastinum is normal. The lungs are underinflated. There is no focal infiltrate or edema. There are no pleural effusions. There is no pneumothorax. There is no osseous abnormality. IMPRESSION: Underinflation without acute cardiopulmonary process Reviewed, Interpreted and Dictated by Joshua Cooper MD Transcribed by Kassi Capone Authenticated and [facility]
[2025-06-03 12:05] LABS: Hematocrit 44.3 % (37.0-47.0); Hemoglobin 15.2 g/dL (12.2-16.2); Immature Granulocytes % 0.3 %; Mean Corpuscular HGB Conc 34.3 g/dL (31.8-35.4); Mean Corpuscular Hemoglobin 29.9 pg (27.0-31.2); Mean Corpuscular Volume 87.0 fl (81-99); Nucleated Red Blood Cells % 0 %; Platelet Count 374 K/mm3 (142-424); Red Blood Count 5.09 M/mm3 (4.20-5.40); Red Cell Distribution Width-SD 39.6 fL; White Blood Count 13.8 K/mm3 (4.8-10.8)
[2025-06-03] MEDS: ACETAMINOPHEN 500MG TAB 1000 MG PO (12:05)
--- OUTSIDE RECORDS SUMMARY | 2025-06-03 12:05 | XMS_ITS | Clinical Summary ---
Author Organization [facility] [place] Address [address] [address] Phone Care Team Providers Care Allergy Nurse Name Role Phone Rebeca Cox MD Primary Care Provider + Allergies Active Allergy Reactions Criticality Noted Date Comments Capsaicin Anaphylaxis High 01/31/2025 Venom-Honey Bee Anaphylaxis High 04/10/2025 Medications amLODIPine (NORVASC) 10 mg Oral TabletIndications :Essential hypertension Take 1 Tablet by mouth daily. 90 Tablet 3 5 Active lisinopriL (PRINIVIL;ZESTRIL ) 40 mg Oral TabletIndications :Essential hypertension Take 1 Tablet by mouth daily. 90 Tablet 3 5 Active metoprolol succinate (TOPROL-XL) 50 mg Oral Tablet Sustained Release 24 hrIndications:Ess ential hypertension Take 1 Tablet by mouth daily. 90 Tablet 3 5 Active hydroCHLOROthiazi de 25 mg Oral TabletIndications :Essential hypertension Take 1 Tablet by mouth daily. 90 Tablet 3 5 Active lisinopriL (PRINIVIL;ZESTRIL ) 40 mg Oral Tablet Take by mouth daily. 05/10/20 25 Discontinu ed(Reorder ) amLODIPine (NORVASC) 10 mg Oral Tablet Take 10 mg by mouth daily. 5 05/10/20 25 Discontinu ed(Reorder ) hydroCHLOROthiazi de (MICROZIDE) 12.5 mg Oral Capsule Take 12.5 mg by mouth every morning. 5 05/10/20 25 Discontinu ed(Cancell ed by ) metoprolol succinate (TOPROL-XL) 50 mg Oral Tablet Sustained Release 24 hr Take 50 mg by mouth daily. 05/10/20 25 Discontinu ed(Reorder ) Active Problems Problem Noted Date Diagnosed Date Essential hypertension 04/10/2025 Assessment & Plan (05/10/2025 10:38 AM EDT): Goal BP: <130/80 BP Readings from Last [...] Tablet; Take 1 Tablet by mouth daily. Assessment & Plan (04/10/2025 9:56 AM EDT): uncontrolled but just took meds 1hr ago cont current regimen without change cont checking BP at home RTC 1mo to f/u BP and log consider increasing HCTZ IUD (intrauterine device) in place 04/10/2025 Overview (04/10/2025): Placed in December 2024 Assessment & Plan (04/10/2025 9:56 AM EDT): placed in December 2024 Encounters Date Type Department Care Team Description 05/10/2025 10:15 AM EDT Office Visit [facility] [address] [place] [address] Rebeca Cox MD Essential hypertension (Primary Dx); Cervical cancer screening 05/10/2025 Travel 05/09/2025 8:12 AM EDT - 05/09/2025 11:59 PM EDT Hospital Encounter [facility] Draw Site [address] [place] [address] Screening for lipoid disorders; Screening for thyroid disorder; Screening for endocrine, nutritional, metabolic and immunity disorder; Screening for diabetes mellitus; Screening for iron deficiency anemia Discharge Disposition: Home or Self Care 04/25/2025 10:40 [place] [address] Jeremias Daly MD Finger pain, left 04/25/2025 10:15 AM EDT Office Visit [place] [phone] Jeremias Daly MD Mucous cyst of finger (Primary Dx); Finger pain, left 04/10/2025 9:00 AM EDT Office Visit [facility] [address] [place] [address] [place] [address] Rebeca Cox MD Annual physical exam (Primary Dx); Essential hypertension; Screening for iron deficiency anemia; Screening for thyroid disorder; Screening for endocrine, nutritional, metabolic and immunity disorder; Screening for lipoid disorders; Screening for diabetes mellitus; IUD (intrauterine device) in place; Ganglion cyst of finger from Last 3 Months Medical History Medical History Date Comments Hypertension Depression Family History Medical History Relation Name Comments Brain Cancer Father High Blood Pressure Father Thyroid Cancer Maternal Aunt Kidney Disease Maternal Grandmother Thyroid Cancer Maternal Grandmother Diabetes Paternal Grandfather Heart Failure Paternal Grandfather High Blood Pressure Paternal Grandfather Breast Cancer Paternal Grandmother Cancer Sister Relation Name Status Comments Father Maternal Aunt Maternal Grandmother Paternal Grandfather Paternal Grandmother Sister Social History Tobacco Use Types Packs/Day Years [...] on file Sexual Orientation Not on file Last Filed Vital Signs Vital Sign Reading Time Taken Comments Blood Pressure 142/92 05/10/2025 9:50 AM EDT Pulse 71 05/10/2025 9:50 AM EDT Temperature 36.8 C (98.3 F) 05/10/2025 9:50 AM EDT Respiratory Rate 15 01/31/2025 4:27 PM EDT Oxygen Saturation 99% 05/10/2025 9:50 AM EDT Inhaled Oxygen Concentration - - Weight 100.5 kg (221 lb 9.6 oz) 05/10/2025 9:50 AM EDT Height 170.2 cm (5' 7 ) 01/31/2025 4:27 PM EDT Body Mass Index 34.71 01/31/2025 4:27 PM EDT Plan of Treatment Health Maintenance Due Date Last Done Comments DTaP/TDaP/Td (1 - Tdap) 2006 Hepatitis B Vaccine (1 of 3 - 19+ 3-dose series) 2006 COVID-19 Vaccine ( - 2023-2 5 season) 2025 Influenza Vaccine (#1) 2025 Annual Wellness Exam 04/10/2026 04/10/2025 Pap Smear 05/10/2028 05/10/2025 Cervical Cancer Screening 05/10/2030 HPV/Pap Cotest 05/10/2030 05/10/2025 Meningococcal B Vaccine Aged Out No l onger eligible based on patient's age to complete this topic Pneumococcal Vaccine 0-49 Aged Out No longer eligible based on patient's age to complete this topic Goals Goal Patient Goal Type Associated Problems Recent Progress Patient-Stated? Author Blood Pressure < 140/90 Blood Pressure 142/92(2024 9:50 AM EDT) No Rebeca Cox MD Maintain a healthy diet, exercise regularly and maintain an ideal body weight General No Domonique Elias MA Stay Tobacco Free Lifestyle No Rebeca Cox MD Procedures Procedure Name Priority Date/Time Associated Diagnosis Comments AGRICULTURE DEPARTMENT CHAIR CYTOLOGY REQUEST (PAP ONLY) Routine 05/10/2025 10:14 AM EDT Cervical cancer screening [facility] AGRICULTURE DEPARTMENT CHAIR CYTOLOGY ORDER Routine 10:14 AM EDT Cervical cancer screening TRICHOMONAS VAGINALIS BY TMA (PAP PANEL) Routine 05/10/2025 10:14 AM EDT Cervical cancer screening GC CHLAMYDIA THIN PREP Routine 10:14 AM EDT Cervical cancer screening HPV HIGH RISK WITH REFLEX TO GENOTYPE Routine 05/10/2025 10:14 AM EDT Cervical cancer screening CBC Routine 05/09/2025 8:12 AM EDT Screening for iron deficiency anemia HEMOGLOBIN A1C Routine 05/09/2025 8:12 AM EDT Screening for diabetes mellitus COMPREHENSIVE METABOLIC PANEL Routine 05/09/2025 8:12 AM EDT Screening for endocrine, nutritional, metabolic and immunity disorder TSH REFLEX TO FT4 Routine 05/09/2025 8:1 2 AM EDT Screening for thyroid disorder LIPID SCREEN Routine 05/09/2025 8:12 AM EDT Screening for lipoid disorders XR FINGER LEFT MINIMUM 2 VW Routine 04/25/2025 10:49 AM EDT Finger pain, left LA ARTHROCENTESIS ASPIR&/INJ SMALL JT/BURSA W/O US Routine 04/25/2025 10:15 AM EDT Finger pain, left Mucous cyst of finger from Last 3 Months Results * AGRICULTURE DEPARTMENT CHAIR CYTOLOGY REQUEST (PAP ONLY) (05/10/2025 10:14 AM EDT) CASE REPORT Gynecologic Cytology Report Case: [id number] Authorizing Provider: Rebeca Cox MD Collected: 05/10/2025 1014 Ordering Location: [facility] Received: 05/10/2025 1014 First Screen: Rolando Augustin CT Specimen: LIQUID-BASED PAP - CERVICAL, Cervix 05/14/2025 12:44 PM EDT [facility] PAP FINAL DIAGNOSIS Negative for intraepithelial lesion or malignancy 05/14/2025 12:44 PM EDT [facility] at 1244 EDT MICROSCOPIC DESCRIPTION Microscopic examination is performed and the findings corroborate the diagnosis. 05/14/2025 12:44 PM EDT [facility] PAP SMEAR ADEQUACY Satisfactory for evaluation 05/14/2025 12:44 PM EDT [facility] ENDOCERVICAL T-ZONE Transformation zone absent. 05/14/2025 12:44 PM EDT PSYCHIATRIC LABORATORY EMBEDDED IMAGES 12:44 PM EDT [facility] PAP DISCLAIMER The Pap Smear is a screening test that aids in the detection of cervical cancer and cancer precursors. Both false positive and false negative results can occur. The test should be used at regular intervals, and positive results should be confirmed before definitive therapy. Processed using the ThinPrep [employer]aster Automated cytology screening device (Emida). 05/14/2025 12:44 PM EDT [facility] Thin Prep PART OF UTERINE CERVIX / Unknown 05/10/2025 10:14 AM EDT 05/10/2025 10:14 AM EDT Rebeca Cox MD CYTOLOGY ORDERABLES Snow bañuelos Result [address] [address] * TRICHOMONAS VAGINALIS BY TMA (PAP PANEL) (05/10/2025 10:14 AM EDT) Trichomonas vaginalis by TMA Not Detected Not Detected 05/14/2025 3:10 AM EDT [facility] Thin Prep PART OF UTERINE CERVIX / Unknown 05/10/2025 10:14 AM EDT 05/10/2025 10:14 AM EDT Narrative [facility] - 05/14/2025 3:10 AM EDT Test methodology is manufacturing support engineer mediated amplification (TMA) using the Aptima Trichomonas vaginalis assay from [employer]. A negative result does not completely rule [...] - GENERAL O RDERABLES Final Result [facility] [address] [facility] , [place] [address] * GC CHLAMYDIA THIN PREP (05/10/2025 10:14 AM EDT) Chlamydia trachomatis Not Detected Not Detected 05/14/2025 3:25 AM EDT [facility] Neisseria gonorrhoeae Not Detected Not Detected 05/14/2025 3:25 AM EDT [facility] Thin Prep PART OF UTERINE CERVIX / Unknown 05/10/2025 10:14 AM EDT 05/10/2025 10:14 AM EDT Narrative [facility] - 05/14/2025 3:25 AM EDT Testing methodology is manufacturing support engineer mediated amplification (TMA) using the Aptima Combo 2 assay from [employer]. A negative result does not completely rule [...] specimens. Detailed methodology is available upon request. us Rebeca Cox MD MICROBIOLOGY - GENERAL O RDERABLES Final Result Performing Organization Address City/[facility]/ZIP Co de Phone Number [facility] [address] [facility] , [place] [address] * HPV HIGH RISK WITH REFLEX TO GENOTYPE (05/10/2025 10:14 AM EDT) HPV HR Reflex Not Detected Not Detected 025 7:40 AM EDT [facility] Thin Prep PART OF UTERINE CERVIX / Unknown 05/10/2025 10:14 AM EDT 05/10/2025 10:14 AM EDT Narrative [facility] - 05/14/2025 7:40 AM EDT This test [...] MICROBIOLOGY - GENERAL O RDERABLES Final Result [facility] [address] [facility] , [place] [address] * TSH REFLEX TO FT4 (05/09/2025 8:12 AM EDT) TSH Reflex 1.330 0.270 - 4.200 mcIU/mL 05/09/2025 3:11 PM EDT [facility] Blood VENOUS BLOOD / Unknown Venipuncture / Unknown 05/09/2025 8:12 AM EDT 05/09/2025 8:12 AM EDT Narrative [facility] - 05/09/2025 3:11 PM EDT Ingestion of morgan doses of biotin (>5 mg/day) taken within 8 hours of drawing blood sample can interfere with this immunoassay test. us Rebeca Cox MD CHEMISTRY ORDERABLES Fin al Result [facility] [address] [facility] , [address] [place] [id number] * (ABNORMAL) CBC (05/09/2025 8:12 AM EDT) WBC 11.2(H) 3.7 - 10.3 x10(3)/[facility] 05/09/2025 1:06 PM EDT [facility] RBC 4.48 3.90 - 5.20 x10(6)/[facility] 05/09/2025 1:06 PM EDT [facility] Hgb 13.2 11.2 - 15.7 g/dL 05/09/2025 1:06 PM EDT [facility] Hct 41.4 34.0 - 45.0 % 05/09/2025 1:06 PM EDT [facility] MCV 92.4 80.0 - 100.0 fL 05/09/2025 1:06 PM EDT [facility] MCH 29.5 26.0 - 34.0 pg 05/09/2025 1:06 PM EDT [facility] MCHC 31.9 30.7 - 35.5 g/dL 05/09/2025 1:06 PM EDT [facility] RDW 12.8 <=14.9 % 05/09/2025 1:06 PM EDT [facility] Platelet 277 155 - 369 x10(3)/[facility] 05/09/2025 1:06 PM EDT [facility] MPV 11.6 8.8 - 12.5 fL 05/09/2025 1:06 PM EDT [facility] Blood VENOUS BLOOD / Unknown Venipuncture / Unknown 05/09/2025 8:12 AM EDT 05/09/2025 8:12 AM EDT Rebeca Cox MD HEMATOLOGY ORDERABLES Fi nal Result Performing Organization Address [facility] de Phone Number [facility] [address] , [place] [address] * HEMOGLOBIN A1C (05/09/2025 8:12 AM EDT) Hgb A1C 5.5 4.2 - 5.6 % 05/09/2025 4:15 PM EDT [facility] Est. Avg Glucose 111 mg/dL 05/09/2025 4:15 PM EDT [facility] Blood VENOUS BLOOD / Unknown Venipuncture / Unknown 05/09/2025 8:12 AM EDT 05/09/2025 8:12 AM EDT Narrative [facility] - 05/09/2025 4:15 PM EDT REFERENCE RANGE: [...] al Result Performing Organization Address [facility] de Phone Number [facility] [address] , [place] [address] * (ABNORMAL) LIPID SCREEN (05/09/2025 8:12 AM EDT) Cholesterol 190 <200 mg/dL 05/09/2025 3:11 PM EDT [facility] Comment: < 200 Desirable 200 - 239 Borderline High >= 240 High Triglyceride 105 <150 mg/dL 05/09/2025 3:11 PM EDT [facility] Comment: < 150 Normal 150 - 199 Borderline High 200 - 499 High >= 500 Very High HDL 49 >=40 mg/dL 05/09/2025 3:11 PM EDT [facility] Comment: > 60 Optimal 40 - 60 Acceptable < 40 Low LDL Calculated 122(H) <100 mg/dL 05/09/2025 3:11 PM EDT [facility] Comment: < 100 Optimal 100 - 129 Near or above optimal 130 - 159 Borderline High 160 - 189 High >= 190 Very High The National Institutes of Health (NIH) equation is used for all lipid panels that report calculated LDL (LDL-C). Non-HDL-C Calculated 141(H) <=129 mg/dL 05/09/2025 3:11 PM EDT [facility] Comment: <130 Desirable 130-159 Above Desirable 160-189 Borderline High 190-219 High >= 220 Very High Fasting Specimen? Yes None 025 3:11 PM EDT [facility] Blood VENOUS BLOOD / Unknown Venipuncture / Unknown 05/09/2025 8:12 AM EDT 05/09/2025 8:12 AM EDT us Rebeca Cox MD CHEMISTRY ORDERABLES Fin al Result [facility] [address] [facility] , [place] [address] * (ABNORMAL) COMPREHENSIVE METABOLIC PANEL (05/09/2025 8:12 [...] mg/dL 05/09/2025 3:11 PM EDT [facility] Glucose Lvl 111(H) 70 - 99 mg/dL 05/09/2025 3:11 PM EDT [facility] BUN 13 6 - 20 mg/dL 05/09/2025 3:11 PM EDT [facility] Creatinine 0.85 0.51 - 1.30 mg/dL 05/09/2025 3:11 PM EDT [facility] Albumin 4.4 3.5 - 5.2 gm/dL 05/09/2025 3:11 PM EDT [facility] Total Protein 6.8 6.4 - 8.3 gm/dL 05/09/2025 3:11 PM EDT [facility] Bili Total 0.2 0.2 - 1.3 mg/dL 05/09/2025 3:11 PM EDT [facility] ALT 17 <=41 U/L 05/09/2025 3:11 PM EDT [facility] AST 16 <=40 U/L 05/09/2025 3:11 PM EDT [facility] Alk Phos 61 36 - 123 U/L 05/09/2025 3:11 PM EDT [facility] eGFR (CKD-EPIcr 2020) 89 >=60 mL/min/1.7 3 m2 05/09/2025 3:11 PM EDT [facility] Comment:Estimated GFR was ca lculated using the CKD-EPIcr (2020) equation refit without race. The equation is recommended by the National Kidney Foundation - [place] [employer] Neph[employer] Task Force. Blood VENOUS BLOOD / Unknown Venipuncture / Unknown 05/09/2025 8:12 AM EDT 05/09/2025 8:12 AM EDT us Rebeca Cox MD CHEMISTRY ORDERABLES Fin al Result [facility] [address] [facility] , [place] [address] * XR FINGER LEFT MINIMUM 2 VW (04/25/2025 10:49 AM EDT) Narrative [facility], [facility] - 04/25/2025 10:49 AM EDT Please see physician's note from office encounter for x-ray imaging result Jeremias Daly MD IMG DIAGNOSTIC IMAGING O RDERABLES Final Result * LA ARTHROCENTESIS ASPIR&/INJ SMALL JT/BURSA W/O US (04/25/2025 10:15 AM EDT) Narrative [facility] - 04/25/2025 10:15 AM EDT Sera Ashford Production Material Handler 04/25/2025 11:01 AM Small Joint Injection/Arthrocentesis: L [...] to verify the correct patient, procedure, equipment, program support clerk and site/side marked as required. Patient was prepped and draped in the usual sterile fashion. Jeremias Daly MD PROCEDURE/MINOR SURGICAL ORDERABLES Final Result Performing Organization Address City/State/[facility] Co de Phone Number [facility] from Last 3 Months Insurance [employer] [place] [phone] [facility] [id number] Care Teams Allergy Nurse Relationship Specialty Start Date End Date Rebeca Cox MD [address] [facility] [place] [address] PCP - General Family Medicine 04/10/25
--- OUTSIDE RECORDS SUMMARY | 2025-06-03 12:05 | XMS_ITS | Patient Health Record ---
Author Organization [place] Address [address] [place] [id number] Care Team Providers Care Agriculture Research Director Name Role Phone Evans Wing Unavailable [phone] Allergies No Known Allergies Reason For Referral No Information Medications Medication SIG (Take, Route, Frequency, Duration) [...] tablet Orally Once a day 06/25/2024 Active Problems Problem Type SNOMED Code ICD Code Onset Dates Problem Status W/U Status Risk Notes Problem Mixed hyperlipidemia (876032845) Mixed hyperlipidemia (E78.2) Active confirmed Problem Obesity (867024857) Non morbid obesity (E66.9) Active confirmed Problem Primary hypertension (64435506) Primary hypertension (I10) Active confirmed Vital Signs Heart Rate 69 /min 03/26/2025 Blood pressure diastolic 92 mm Hg 03/26/2025 Height 68 in 03/26/2025 Blood pressure systolic 140 mm Hg 03/26/2025 Weight 219 lbs 03/26/2025 BMI 33.3 kg/m2 03/26/2025 Encounters Encounter Location Date Provider Diagnosis [facility] [address] [facility] [address] [place] [id number] 06/25/2024 Evans Lorraine Primary hypertension I10 and Mixed hyperlipidemia E78.2 [facility] [address] [place] [id number] 03/25/2025 Evans Lorraine Primary hypertension I10 [facility] [address] [place] [id number] 03/26/2025 Evans Wing Primary hypertension I10 Assessments Encounter Date Diagnosis (ICD Code) Assessment Notes Treatment Notes Treatment Clinical Notes Section Notes 06/25/2024 Mixed hyperlipidemia (ICD-10 - E78.2) 06/25/2024 Primary hypertension (ICD-10 - I10) Not at goal 03/25/2025 Primary hypertension (ICD-10 - I10) 03/26/2025 Primary hypertension (ICD-10 - I10) Plan Of Treatment Pending Test Test Name Order Date H-Lipid Panel 06/25/2024 H-CMP 06/25/2024 Insurance Providers Payer Name Payer Address Payer Phone Subscriber Number Group Number Insured Name Patient Relationship to Insured Coverage Start Date Coverage End Date [facility] [address] [address] [place] [address] [phone] [id number] ZAKIYA ROTH Self - patient is the insured Medical (General) History Medical History History ICD Code Hypertension Kidney Stones Surgical History Surgery Date(Month/Year) [place] Teeth Extractions Upper Teeth Extracted
--- OUTSIDE RECORDS SUMMARY | 2025-06-03 12:05 | XMS_ITS | Encounter Summary ---
Author Organization [place] [address] Care Team Providers Care Lance Crewmember Name Role Phone Unavailable Primary Care Provider Unavailabl e Encounter Details Date Type Department Care Team (Late st Contact Info) Description 02/01/2025 Results [facility] [place] [address] [address] [place] [id number] Bola Lackey MD [address] [place] [address] LYME AB TOTAL EARLY Social History Tobacco Use Types Packs/Day Years Used Date Smoking Tobacco: Never Assessed Comments Unknown Sex and Gender Information Value Date Recorded Sex Assigned at Not on file Legal Sex Female 4:11 PM EDT Gender Identity Not on file Sexual Orientation Not on file documented as of this encounter Progress Notes * Bola Lackey MD - 02/01/2025 8:11 AM EDT Negative lyme test documented in this encounter Plan of Treatment Not on file documented as of this encounter Visit Diagnoses Not on filedocumented in this encounter
--- OUTSIDE RECORDS SUMMARY | 2025-06-03 12:05 | XMS_ITS | Encounter Summary ---
Author Organization [facility] [place] [address] Care Team Providers Care Chief Accountant Name Role Phone Rebeca Cox MD Primary Care Provider + Encounter Details Date Type Department Care Team (Latest Contact Info) Description 05/10/2025 Travel Social History Tobacco Use Types Packs/Day Years [...] of Assessment Author No 04/10/2025 9:06 AM TONIT Domonique Elias MA * Does this person [...] Elias MA Stay Tobacco Free Lifestyle No eRbeca Cox MD documented as of this encounter Visit Diagnoses Not on filedocumented in this encounter Care Teams Chief Accountant Relationship Specialty Start Date End Date Rebeca Cox MD [address] [place] [address] PCP - General Family Medicine 04/10/25 documented as of this encounter
[2025-06-03 12:18] LABS: HCG Qualitative, Serum Negative (Negative)
[2025-06-03 12:19] LABS: VBG HCO3 22.4 mmol/L (23-30); VBG PCO2 32.5 mmol/L (35-51); VBG PH 7.46 mmol/L (7.31-7.41); VBG PO2 63.2 mmol/L (28-40)
[2025-06-03 12:21] LABS: Lactate Venous 3.2 mmol/L (0.4-2.0)
[2025-06-03 12:29] LABS: Alanine Aminotransferase 27 U/L (12-78); Albumin Level 4.9 g/dl (3.5-5.0); Albumin/Globulin Ratio 1.5 (1.1-1.8); Alkaline Phosphatase 64 U/L (38-126); Anion Gap 17.4 mEq/L (5-15); Aspartate Amino Transferase 36 U/L (14-36); Bilirubin,Total 0.6 mg/dl (0.2-1.3); Blood Urea Nitrogen 18 mg/dl (7-17); Calcium 10.4 mg/dl (8.4-10.2); Carbon Dioxide 21 mmol/L (22.0-30.0); Chloride 102 mmol/L (98-107); Creatinine,Serum 1.00 mg/dl (0.52-1.04); Estimated Glomerular Filt Rate 62 ml/min (>60); GFR (African American) 75 ML/MIN (>60); Globulin 3.3 g/dL (1.3-3.2); Glucose 117 mg/dl (74-100); Lipase 80 U/L (23-300); Potassium 4.4 mmoL/L (3.5-5.1); Sodium 136 mmol/L (136-145); Total Protein,Serum 8.2 g/dl (6.3-8.2)
[2025-06-03 12:35] LABS: D-Dimer 0.60 ug/mL (0.0-0.5)
[2025-06-03 12:53] LABS: Troponin I < 0.01 ng/ml (0.00-0.034)
[2025-06-03 13:33] LABS: RBC Morphology Normal; Total Cells Counted 100
[2025-06-03 16:16] LABS: Reflex Lactic Add Lactic Reflex
== END 2025-06-03 13:43 | disposition home or self-care (01) ==
PROVIDERS: Emergency Provider Student in an Organized Health Care Education/Training Program
DX: R55 Syncope and collapse (principal); R00.1 Bradycardia, unspecified; E87.3 Alkalosis; R74.02 Elevation of levels of lactic acid dehydrogenase [LDH]; I10 Essential (primary) hypertension
CPT/HCPCS: 71045; 80053; 82803; 83690; 84484; 84703; 85007; 85025; 85378; 93005; 99284; 99285